=== PATIENT | female | born 1945 | race Caucasian/White ===

== ENCOUNTER 2019-02-28 23:13 | Inpatient (IN) | payer MEDICARE ==
[~2019-02-28] VITALS: Ht 162.6 cm; Wt 73.7 kg
[2019-02-28] MEDS ORDERED: VANCOMYCIN 1,300 MG in SODIUM CHLORIDE 0.9% 250 ML IV ONE (23:45)
[2019-03-01] VITALS (8 sets, daily range): BP systolic 93–137; BP diastolic 51–78
[2019-03-01] MEDS ORDERED: SODIUM CHLORIDE 0.9% 1,000ML IVBOLUS ONE
[2019-03-01] MEDS ORDERED: SUCCINYLCHOLINE 20 MG/ML, 10ML ONE
[2019-03-01] MEDS ORDERED: ETOMIDATE 40 MG/20 ML ONE
[2019-03-01] MEDS ORDERED: VANCOMYCIN PER PHARMACY MC ONE
[2019-03-01 00:49] LABS: MICROSCOPIC INDICATED
[2019-03-01 01:09] LABS: CULTURE INDICATED? YES
[2019-03-01] MEDS ORDERED: ZOLP-413 PO (01:10)
[2019-03-01] MEDS ORDERED: GABA300C10 PO (01:10)
[2019-03-01] MEDS ORDERED: ACETAMINOPHEN 325 MG TABLET PO PRN (04:30)
[2019-03-01] MEDS ORDERED: morphine SULFATE 10 MG/ML, 1ML IVPush PRN (04:30)
[2019-03-01] MEDS ORDERED: ONDANSETRON 2MG/ML, 2ML IVPush PRN (04:30)
[2019-03-01] MEDS ORDERED: LACTATED RINGERS 1,000 ML IV SCH (04:30)
[2019-03-01] MEDS ORDERED: HYDROcodone/APAP 5/325 TABLET PO PRN (04:30)
[2019-03-01] MEDS ORDERED: VANCOMYCIN PER PHARMACY MC PRN (04:30)
[2019-03-01] MEDS ORDERED: PHARMACY MAY ADJ FOR RENAL FX MC PRN (04:30)
[2019-03-01] MEDS ORDERED: HEPARIN 5,000 UNITS/ML, 1ML SQ SCH (04:30)
[2019-03-01] MEDS ORDERED: ALBUTEROL SULFATE 2.5 MG/3 ML NPPB PRN (05:00)
[2019-03-01] MEDS: PIPERACILLIN/TAZO/PMX 3.375GM 50 ML IV SCH ×3 (05:11→19:13)
[2019-03-01] MEDS ORDERED: PHARMACOKINETIC CONSULTATION MC ONE (06:00)
[2019-03-01] MEDS ORDERED: PHARMACOKINETIC MONITORING MC PRN (06:00)
[2019-03-01 07:31] LABS: ALANINE AMINOTRANSFERASE 11 U/L (12-78); ANION GAP 9 mmol/L (5-15); CALCIUM 8.2 mg/dL (8.5-10.1); CHLORIDE 105 mmol/L (98-107); CREATININE 0.91 mg/dL (0.55-1.02)
[2019-03-01 07:36] LABS: ALKALINE PHOSPHATASE 58 U/L (45-117); BILIRUBIN,TOTAL 0.8 mg/dL (0.2-1.0); TOTAL PROTEIN 6.3 g/dL (6.4-8.2); TROPONIN I 0.039 ng/mL (0.000-0.045)
[2019-03-01 07:49] LABS: MEAN CORPUSCULAR HEMOGLOBIN 29.6 pg (27.0-34.8); MEAN CORPUSCULAR HGB CONC 32.8 g/dL (32.4-35.8); MEAN CORPUSCULAR VOLUME 90.3 fL (80-100); MEAN PLATELET VOLUME 10.2 fL (7.4-10.4); RED BLOOD COUNT 2.67 x10^6/uL (3.82-5.3); RED CELL DISTRIBUTION WIDTH 19.3 % (9.6-15.2)
[2019-03-01 07:50] LABS: PLATELET COUNT 12 x10^3/uL (130-400)
[2019-03-01 07:51] LABS: MD YES
[2019-03-01 07:54] LABS: <PLATELET ESTIMATE> DECREASED; ANISOCYTOSIS 1+; BAND#(MANUAL) 0.11 x10^3/uL; BANDS%(MANUAL) 4 % (0-7); LARGE PLATELETS 1+; LYMPH#(MANUAL) 0.39 x10^3/uL (1-3.4); LYMPHS% (MANUAL) 14 % (22-44); METAMYELOCYTES# (MANUAL) 0.06 x10^3/uL (0-0); METAMYELOCYTES% (MANUAL) 2 % (0-1); MONOS#(MANUAL) 0.39 x10^3/uL (0.3-2.7); MONOS% (MANUAL) 14 % (2-9); MYELOCYTES# (MANUAL) 0.03 x10^3/uL (0-0); MYELOCYTES% (MANUAL) 1 % (0-0); NRBC % (MANUAL) 2 % (0-1); SEG#(MANUAL) 1.82 x10^3/uL (1.8-6.8); SEGS% (MANUAL) 65 % (42-75)
[2019-03-01 07:57] LABS: POLYCHROMASIA 1+
[2019-03-01] MEDS ORDERED: DAPTOMYCIN 425 MG in SODIUM CHLORIDE 0.9% 100 ML IVPB SCH (09:00)
[2019-03-01] MEDS ORDERED: POTASSIUM CHLORIDE 10% 40 MEQ/30 ML UDC PO ONE (10:00)
[2019-03-01] MEDS ORDERED: MAGNESIUM SULFATE/D5W 100 ML IV ONE (10:00)
[2019-03-01] MEDS ORDERED: IMMUNE GLOB (GAMUNEX) 10GM/100ML IVPB ONE (11:00)
[2019-03-01] MEDS ORDERED: IMMUNE GLOBULIN IV ONE (11:00)
[2019-03-01] MEDS ORDERED: IMMUNE GLOB (GAMUNEX) 10GM/100ML ONE (11:00)
[2019-03-01] MEDS ORDERED: GADOTERATE 7.5 MMOL/15 ML SYR ONE (11:28)
[2019-03-01 12:04] LABS: T4 (THYROXINE) 6.3 mcg/dL (4.8-13.9)
[2019-03-01 12:10] LABS: TROPONIN I 0.047 ng/mL (0.000-0.045)
[2019-03-01] MEDS: OXYcodone 5 MG/5 ML ORAL.SOL UDC PO PRN (13:13)
[2019-03-01] MEDS ORDERED: METHYLPREDNISOLONE SOD SUCC 500 MG ONE (14:05)
[2019-03-01] MEDS ORDERED: EPINEPHRINE 1 MG/ML, 30ML ONE (14:05)
[2019-03-01] MEDS ORDERED: FENTANYL PF 100 MCG/2ML ONE (14:16)
[2019-03-01] MEDS ORDERED: PROPOFOL 100 ML IV ONE (14:20)
[2019-03-01] MEDS ORDERED: NOREPINEPHRINE 8 MG in SODIUM CHLORIDE 0.9% 242 ML IV PRN (14:47)
[2019-03-01] MEDS ORDERED: SENNA 176 MG/5 ML ORAL SOL NG PRN (15:00)
[2019-03-01] MEDS ORDERED: DEXTROSE 50%, 50ML SYRINGE IVPush PRN (15:00)
[2019-03-01] MEDS: ALBUTEROL/IPRATROPIUM 2.5MG/0.5MG, 3 ML INLINE SCH ×3 (15:00→22:23)
[2019-03-01] MEDS ORDERED: LACTULOSE 20 GM/30 ML UDC NG PRN (15:00)
[2019-03-01] MEDS ORDERED: LIDOCAINE-MPF 1%, 2ML ENDO PRN (15:00)
[2019-03-01] MEDS ORDERED: PHARMACY MAY ADJ FOR RENAL FX MC SCH (15:00)
[2019-03-01] MEDS ORDERED: BISACODYL 10 MG SUPP PR PRN (15:00)
[2019-03-01] MEDS ORDERED: DEXTROSE 4 GM TAB.CHEW PO PRN (15:00)
[2019-03-01] MEDS: methylPREDNISolone SOD SUCC 40 MG/ML IV SCH ×2 (15:00→21:31)
[2019-03-01] MEDS ORDERED: GLUCAGON 1 MG IM PRN (15:00)
[2019-03-01 15:42] LABS: ANION GAP 12 mmol/L (5-15); CALCIUM 8.7 mg/dL (8.5-10.1); CHLORIDE 105 mmol/L (98-107); TRIGLYCERIDES 218 mg/dL (50-200)
[2019-03-01 15:45] LABS: TROPONIN I 0.152 ng/mL (0.000-0.045)
[2019-03-01] MEDS: INSULIN LISPRO 100 UNITS/ML, PEN SQ-INSULIN SCH ×2 (16:00→21:40)
[2019-03-01 16:01] LABS: INTERNATIONAL NORMALIZED RATIO 1.2 (0.93-1.1); PROTHROMBIN TIME 12.7 Seconds (9.6-11.5)
[2019-03-01] MEDS: LACTATED RINGERS 1,000 ML IV SCH ×2 (16:03→22:47)
[2019-03-01 16:06] LABS: D-DIMER (DIC) 16.49 ug/mlFEU (0.00-0.52); PROTIME 12.7 Seconds (9.6-11.5)
[2019-03-01] MEDS: PROPOFOL 100 ML IV PRN ×3 (16:06→23:38)
[2019-03-01 16:07] LABS: MICROSCOPIC INDICATED
[2019-03-01] MEDS: CIPROFLOXACIN/PMX 400MG/200ML 200 ML IV SCH (16:11)
[2019-03-01 16:22] LABS: CULTURE INDICATED? NO
[2019-03-01] MEDS ORDERED: MAGNESIUM SULFATE PMX 2GM/50ML 50 ML IV ONE (16:30)
[2019-03-01] MEDS: FAMOTIDINE 20 MG/2 ML IV SCH (17:25)
[2019-03-01] MEDS: FENTANYL PF 100 MCG/2ML IVPush PRN (18:26)
[2019-03-01] MEDS ORDERED: SODIUM CHLORIDE 0.9%, 500ML IVBOLUS ONE (18:30)
[2019-03-01] MEDS ORDERED: DIPHENHYDRAMINE 50 MG/ML, 1ML IVPush ONE (20:30)
[2019-03-01] MEDS: HYDROCORTISONE 100 MG INJ. IVPush PRN (21:31)
[2019-03-01] MEDS: SODIUM CHLORIDE FLUSH 10ML SYR IVF SCH (21:40)
[2019-03-01 22:23] LABS: TROPONIN I 0.194 ng/mL (0.000-0.045)
[2019-03-01 23:47] LABS: RAPID INFLUENZA A Negative (Negative)
[2019-03-01 23:48] LABS: RAPID INFLUENZA B POSITIVE (Negative)
[2019-03-02] VITALS (7 sets, daily range): BP systolic 92–127; BP diastolic 57–82
[2019-03-02] MEDS: FENTANYL PF 100 MCG/2ML IVPush PRN ×5 (01:18→19:39)
[2019-03-02] MEDS: PIPERACILLIN/TAZO/PMX 3.375GM 50 ML IV SCH ×4 (01:18→19:39)
[2019-03-02] MEDS: ALBUTEROL/IPRATROPIUM 2.5MG/0.5MG, 3 ML INLINE SCH ×6 (02:23→23:00)
[2019-03-02] MEDS: FAMOTIDINE 20 MG/2 ML IV SCH ×2 (03:30→15:19)
[2019-03-02] MEDS: methylPREDNISolone SOD SUCC 40 MG/ML IV SCH ×5 (03:30→23:40)
[2019-03-02] MEDS: CIPROFLOXACIN/PMX 400MG/200ML 200 ML IV SCH ×3 (03:30→23:40)
[2019-03-02 04:04] LABS: ALANINE AMINOTRANSFERASE 16 U/L (12-78); ALBUMIN 1.9 g/dL (3.4-5.0); ANION GAP 9 mmol/L (5-15); CALCIUM 8.9 mg/dL (8.5-10.1); CHLORIDE 108 mmol/L (98-107); CREATININE 0.95 mg/dL (0.55-1.02)
[2019-03-02 04:06] LABS: MEAN CORPUSCULAR HEMOGLOBIN 29.7 pg (27.0-34.8); MEAN CORPUSCULAR HGB CONC 33.1 g/dL (32.4-35.8); MEAN CORPUSCULAR VOLUME 89.9 fL (80-100); RED BLOOD COUNT 2.62 x10^6/uL (3.82-5.3); RED CELL DISTRIBUTION WIDTH 19.1 % (9.6-15.2)
[2019-03-02 04:07] LABS: ALKALINE PHOSPHATASE 53 U/L (45-117); BILIRUBIN,TOTAL 1.3 mg/dL (0.2-1.0); TOTAL PROTEIN 5.7 g/dL (6.4-8.2)
[2019-03-02 04:19] LABS: MEAN PLATELET VOLUME 9.5 fL (7.4-10.4)
[2019-03-02 04:21] LABS: PLATELET COUNT 13 x10^3/uL (130-400)
[2019-03-02 04:23] LABS: MD YES
[2019-03-02 04:27] LABS: BAND#(MANUAL) 0.27 x10^3/uL; BANDS%(MANUAL) 7 % (0-7); LYMPH#(MANUAL) 0.66 x10^3/uL (1-3.4); LYMPHS% (MANUAL) 17 % (22-44); METAMYELOCYTES# (MANUAL) 0.08 x10^3/uL (0-0); METAMYELOCYTES% (MANUAL) 2 % (0-1); MONOS#(MANUAL) 0.55 x10^3/uL (0.3-2.7); MONOS% (MANUAL) 14 % (2-9); SEG#(MANUAL) 2.34 x10^3/uL (1.8-6.8); SEGS% (MANUAL) 60 % (42-75)
[2019-03-02 04:28] LABS: <PLATELET ESTIMATE> DECREASED; <PLT MORPHOLOGY> NORMAL PLT MORPH; ANISOCYTOSIS 1+; POLYCHROMASIA 1+
[2019-03-02] MEDS ORDERED: HYDROCORTISONE 100 MG INJ. IVPush PRN (04:30)
[2019-03-02] MEDS ORDERED: DIPHENHYDRAMINE 50 MG/ML, 1ML IVPush PRN (04:30)
[2019-03-02] MEDS: PROPOFOL 100 ML IV PRN ×5 (06:40→23:40)
[2019-03-02] MEDS ORDERED: IMMUNE GLOB (GAMUNEX) 10GM/100ML IVPB ONE (07:30)
[2019-03-02 08:44] LABS: ABSOLUTE RETICS # 0.065 x10^6/uL (0.5-2.5); RED BLOOD COUNT 2.56 x10^6/uL (3.82-5.3); RETICULOCYTE COUNT % 2.53 % (0.5-1.5)
[2019-03-02] MEDS: SODIUM CHLORIDE FLUSH 10ML SYR IVF SCH ×2 (09:48→22:36)
[2019-03-02] MEDS: OSELTAMIVIR 75 MG CAPSULE PO SCH ×2 (09:48→22:36)
[2019-03-02] MEDS ORDERED: IMMUNE GLOBULIN IV ONE (10:00)
[2019-03-02] MEDS: DIPHENHYDRAMINE 50 MG/ML, 1ML IVPush PRN (10:41)
[2019-03-02] MEDS: ACETAMINOPHEN 325 MG TABLET PO PRN (10:41)
[2019-03-02] MEDS: HYDROCORTISONE 100 MG INJ. IVPush PRN (10:41)
[2019-03-02] MEDS ORDERED: DEXMEDETOMIDINE 400 MCG in SODIUM CHLORIDE 0.9% 96 ML IV PRN (11:30)
--- NOTE | 2019-03-02 11:58 | NUR ---
TF Goal: w/ propofol: PROMOTE @ 55ml/hr; without propofol: 60ml/hr
[2019-03-02] MEDS: INSULIN LISPRO 100 UNITS/ML, PEN SQ-INSULIN SCH ×3 (12:10→22:46)
[2019-03-02] MEDS: BUDESONIDE 0.5 MG/2 ML INHA INH SCH (21:00)
[2019-03-03] MEDS: PIPERACILLIN/TAZO/PMX 3.375GM 50 ML IV SCH ×4 (01:33→19:14)
[2019-03-03] MEDS: ALBUTEROL/IPRATROPIUM 2.5MG/0.5MG, 3 ML INLINE SCH ×6 (03:00→22:56)
[2019-03-03] MEDS: INSULIN LISPRO 100 UNITS/ML, PEN SQ-INSULIN SCH ×4 (04:14→22:52)
[2019-03-03] MEDS: PROPOFOL 100 ML IV PRN ×2 (04:15→10:55)
[2019-03-03] MEDS: FENTANYL PF 100 MCG/2ML IVPush PRN ×5 (04:15→20:53)
[2019-03-03 04:44] LABS: ANION GAP 8 mmol/L (5-15); CALCIUM 9.1 mg/dL (8.5-10.1); CHLORIDE 106 mmol/L (98-107)
[2019-03-03 04:46] LABS: CREATININE 0.81 mg/dL (0.55-1.02)
[2019-03-03 05:32] VITALS: BP 97/57
[2019-03-03 05:41] LABS: MEAN CORPUSCULAR HEMOGLOBIN 30.1 pg (27.0-34.8); MEAN CORPUSCULAR HGB CONC 33.6 g/dL (32.4-35.8); MEAN CORPUSCULAR VOLUME 89.7 fL (80-100); MEAN PLATELET VOLUME 10.3 fL (7.4-10.4); RED BLOOD COUNT 2.45 x10^6/uL (3.82-5.3); RED CELL DISTRIBUTION WIDTH 18.7 % (9.6-15.2)
[2019-03-03 05:42] LABS: MD YES
[2019-03-03 05:43] LABS: PLATELET COUNT 17 x10^3/uL (130-400)
[2019-03-03 05:45] LABS: LYMPH#(MANUAL) 0.29 x10^3/uL (1-3.4); LYMPHS% (MANUAL) 14 % (22-44)
[2019-03-03 05:46] LABS: BAND#(MANUAL) 0.23 x10^3/uL; BANDS%(MANUAL) 11 % (0-7); MONOS#(MANUAL) 0.11 x10^3/uL (0.3-2.7); MONOS% (MANUAL) 5 % (2-9); SEG#(MANUAL) 1.47 x10^3/uL (1.8-6.8); SEGS% (MANUAL) 70 % (42-75)
[2019-03-03 05:47] LABS: <PLATELET ESTIMATE> DECREASED; ANISOCYTOSIS 1+; LARGE PLATELETS 1+; POLYCHROMASIA 1+
[2019-03-03] MEDS: CIPROFLOXACIN/PMX 400MG/200ML 200 ML IV SCH ×3 (05:55→22:24)
[2019-03-03] MEDS: BUDESONIDE 0.5 MG/2 ML INHA INH SCH ×2 (07:50→21:00)
[2019-03-03] MEDS: OSELTAMIVIR 75 MG CAPSULE PO SCH ×2 (09:18→20:52)
[2019-03-03] MEDS: methylPREDNISolone SOD SUCC 40 MG/ML IV SCH (09:19)
[2019-03-03] MEDS: SODIUM CHLORIDE FLUSH 10ML SYR IVF SCH ×2 (09:19→20:52)
[2019-03-03] MEDS: FAMOTIDINE 20 MG/2 ML IV SCH (09:19)
[2019-03-03] MEDS: HYDROCORTISONE 100 MG INJ. IVPush PRN (12:48)
[2019-03-03] MEDS: ACETAMINOPHEN 325 MG TABLET PO PRN (12:48)
[2019-03-03] MEDS: DIPHENHYDRAMINE 50 MG/ML, 1ML IVPush PRN (12:48)
[2019-03-03 12:57] VITALS: BP 129/58
[2019-03-03 13:15] VITALS: BP 109/58
[2019-03-03 13:30] VITALS: BP 116/57
[2019-03-03] MEDS ORDERED: methylPREDNISolone SOD SUCC 40 MG/ML IV SCH (14:00)
[2019-03-03 16:05] VITALS: BP 113/66
[2019-03-03] MEDS ORDERED: DEXAMETHASONE 4 MG/ML, 5ML IVPush ONE (16:30)
[2019-03-03] MEDS ORDERED: DEXAMETHASONE 4 MG/ML, 1ML ONE (16:32)
[2019-03-03 17:00] VITALS: BP 110/62
[2019-03-03] MEDS: DEXMEDETOMIDINE 400 MCG in SODIUM CHLORIDE 0.9% 96 ML IV PRN ×2 (17:24→22:24)
[2019-03-03] MEDS: DEXAMETHASONE 4 MG/ML, 1ML IVPush SCH (20:53)
[2019-03-04] MEDS: PIPERACILLIN/TAZO/PMX 3.375GM 50 ML IV SCH ×4 (00:58→19:29)
[2019-03-04] MEDS: DEXMEDETOMIDINE 400 MCG in SODIUM CHLORIDE 0.9% 96 ML IV PRN ×3 (01:22→09:27)
[2019-03-04] MEDS: FENTANYL PF 100 MCG/2ML IVPush PRN ×2 (02:05→07:32)
[2019-03-04] MEDS: ALBUTEROL/IPRATROPIUM 2.5MG/0.5MG, 3 ML INLINE SCH ×2 (03:00→07:16)
[2019-03-04 03:27] LABS: MEAN CORPUSCULAR HEMOGLOBIN 29.6 pg (27.0-34.8); MEAN CORPUSCULAR HGB CONC 33.2 g/dL (32.4-35.8); MEAN PLATELET VOLUME 8.8 fL (7.4-10.4); RED BLOOD COUNT 2.57 x10^6/uL (3.82-5.3); RED CELL DISTRIBUTION WIDTH 18.8 % (9.6-15.2)
[2019-03-04 03:28] LABS: PLATELET COUNT 30 x10^3/uL (130-400)
[2019-03-04 03:38] LABS: ANION GAP 6 mmol/L (5-15); CALCIUM 8.7 mg/dL (8.5-10.1); CHLORIDE 106 mmol/L (98-107); CREATININE 0.67 mg/dL (0.55-1.02); TRIGLYCERIDES 282 mg/dL (50-200)
[2019-03-04 03:41] LABS: MD YES
[2019-03-04 03:45] LABS: BAND#(MANUAL) 0.11 x10^3/uL; BANDS%(MANUAL) 5 % (0-7); LYMPH#(MANUAL) 0.27 x10^3/uL (1-3.4); LYMPHS% (MANUAL) 13 % (22-44); METAMYELOCYTES# (MANUAL) 0.02 x10^3/uL (0-0); METAMYELOCYTES% (MANUAL) 1 % (0-1); MONOS#(MANUAL) 0.06 x10^3/uL (0.3-2.7); MONOS% (MANUAL) 3 % (2-9); NRBC % (MANUAL) 2 % (0-1); SEG#(MANUAL) 1.64 x10^3/uL (1.8-6.8); SEGS% (MANUAL) 78 % (42-75)
[2019-03-04 03:46] LABS: <PLATELET ESTIMATE> DECREASED; ANISOCYTOSIS 1+; PMNS WITH VACUOLES 1+; POLYCHROMASIA 1+
[2019-03-04 03:47] LABS: LARGE PLATELETS 1+
[2019-03-04 03:56] VITALS: BP 144/87
[2019-03-04] MEDS: DEXAMETHASONE 4 MG/ML, 1ML IVPush SCH ×2 (04:52→11:08)
[2019-03-04] MEDS: INSULIN LISPRO 100 UNITS/ML, PEN SQ-INSULIN SCH ×4 (04:53→22:58)
[2019-03-04] MEDS: CIPROFLOXACIN/PMX 400MG/200ML 200 ML IV SCH ×3 (06:10→22:57)
[2019-03-04] MEDS: BUDESONIDE 0.5 MG/2 ML INHA INH SCH (07:16)
[2019-03-04] MEDS: FAMOTIDINE 20 MG/2 ML IV SCH (08:45)
[2019-03-04] MEDS: OSELTAMIVIR 75 MG CAPSULE PO SCH ×2 (08:45→20:45)
[2019-03-04] MEDS: SODIUM CHLORIDE FLUSH 10ML SYR IVF SCH ×2 (08:46→20:47)
[2019-03-04] MEDS ORDERED: HYDROmorphone 1 MG/ML, 1ML INJ IM PRN (12:00)
[2019-03-04] MEDS: OXYcodone 5 MG/5 ML ORAL.SOL UDC PO PRN (14:55)
[2019-03-04] MEDS: ACETAMINOPHEN 325 MG TABLET PO PRN (19:35)
[2019-03-04] MEDS: HYDROmorphone 2 MG/ML, 1ML IVPush PRN (20:46)
[2019-03-05] MEDS: PIPERACILLIN/TAZO/PMX 3.375GM 50 ML IV SCH ×4 (02:27→18:09)
[2019-03-05 04:06] LABS: ANION GAP 5 mmol/L (5-15); CALCIUM 8.9 mg/dL (8.5-10.1); CHLORIDE 106 mmol/L (98-107); CREATININE 0.83 mg/dL (0.55-1.02)
[2019-03-05 04:38] LABS: INTERNATIONAL NORMALIZED RATIO 1.07 (0.93-1.1); PROTHROMBIN TIME 11.4 Seconds (9.6-11.5)
[2019-03-05 04:38] LABS: MEAN CORPUSCULAR HEMOGLOBIN 29.5 pg (27.0-34.8); MEAN CORPUSCULAR HGB CONC 32.9 g/dL (32.4-35.8); MEAN CORPUSCULAR VOLUME 89.6 fL (80-100); RED BLOOD COUNT 2.63 x10^6/uL (3.82-5.3); RED CELL DISTRIBUTION WIDTH 18.7 % (9.6-15.2)
[2019-03-05 04:52] LABS: MEAN PLATELET VOLUME 9.9 fL (7.4-10.4)
[2019-03-05 04:54] LABS: MD YES; PLATELET COUNT 25 x10^3/uL (130-400)
[2019-03-05 05:00] LABS: BAND#(MANUAL) 0.21 x10^3/uL; BANDS%(MANUAL) 4 % (0-7); LYMPH#(MANUAL) 0.31 x10^3/uL (1-3.4); LYMPHS% (MANUAL) 6 % (22-44); METAMYELOCYTES# (MANUAL) 0.05 x10^3/uL (0-0); METAMYELOCYTES% (MANUAL) 1 % (0-1); MONOS#(MANUAL) 0.42 x10^3/uL (0.3-2.7); MONOS% (MANUAL) 8 % (2-9); REACTIVE LYMPHS # (MANUAL) 0.05 x10^3/uL (0-0); REACTIVE LYMPHS % (MANUAL) 1 % (0-0); SEG#(MANUAL) 4.16 x10^3/uL (1.8-6.8); SEGS% (MANUAL) 80 % (42-75)
[2019-03-05] MEDS: INSULIN LISPRO 100 UNITS/ML, PEN SQ-INSULIN SCH (05:00)
[2019-03-05 05:01] LABS: <PLATELET ESTIMATE> DECREASED; ANISOCYTOSIS 1+; LARGE PLATELETS 1+; POLYCHROMASIA 1+
[2019-03-05 05:22] VITALS: BP 122/67
[2019-03-05] MEDS ORDERED: FUROSEMIDE 20 MG/2 ML IV ONE (09:00)
[2019-03-05] MEDS: CIPROFLOXACIN/PMX 400MG/200ML 200 ML IV SCH (10:05)
[2019-03-05] MEDS: FAMOTIDINE 20 MG/2 ML IV SCH (11:07)
[2019-03-05] MEDS: OSELTAMIVIR 75 MG CAPSULE PO SCH ×2 (11:08→21:39)
[2019-03-05] MEDS: SODIUM CHLORIDE FLUSH 10ML SYR IVF SCH ×2 (11:09→21:40)
[2019-03-05] MEDS: ACETAMINOPHEN 325 MG TABLET PO PRN (16:26)
[2019-03-05] MEDS: OXYcodone 5 MG/5 ML ORAL.SOL UDC PO PRN (18:09)
[2019-03-05] MEDS: HYDROmorphone 2 MG/ML, 1ML IVPush PRN (21:40)
[2019-03-06] VITALS (7 sets, daily range): BP systolic 106–150; BP diastolic 64–89
[2019-03-06] MEDS: PIPERACILLIN/TAZO/PMX 3.375GM 50 ML IV SCH ×4 (01:11→21:41)
[2019-03-06 04:09] LABS: MEAN CORPUSCULAR HEMOGLOBIN 29.9 pg (27.0-34.8); MEAN CORPUSCULAR HGB CONC 33.4 g/dL (32.4-35.8); MEAN CORPUSCULAR VOLUME 89.6 fL (80-100); MEAN PLATELET VOLUME 9.3 fL (7.4-10.4); RED BLOOD COUNT 2.42 x10^6/uL (3.82-5.3); RED CELL DISTRIBUTION WIDTH 18.5 % (9.6-15.2)
[2019-03-06 04:11] LABS: PLATELET COUNT 16 x10^3/uL (130-400)
[2019-03-06 04:14] LABS: MD YES
[2019-03-06 04:19] LABS: ANION GAP 6 mmol/L (5-15); CALCIUM 8.5 mg/dL (8.5-10.1); CHLORIDE 105 mmol/L (98-107)
[2019-03-06 04:25] LABS: ANISOCYTOSIS 1+; BAND#(MANUAL) 0.06 x10^3/uL; BANDS%(MANUAL) 2 % (0-7); EOS#(MANUAL) 0.06 x10^3/uL (0.0-0.4); EOS% (MANUAL) 2 % (1-7); LYMPH#(MANUAL) 0.39 x10^3/uL (1-3.4); LYMPHS% (MANUAL) 14 % (22-44); METAMYELOCYTES# (MANUAL) 0.03 x10^3/uL (0-0); METAMYELOCYTES% (MANUAL) 1 % (0-1); MONOS#(MANUAL) 0.39 x10^3/uL (0.3-2.7); MONOS% (MANUAL) 14 % (2-9); MYELOCYTES# (MANUAL) 0.03 x10^3/uL (0-0); MYELOCYTES% (MANUAL) 1 % (0-0); NRBC % (MANUAL) 2 % (0-1); POLYCHROMASIA 1+; SEG#(MANUAL) 1.85 x10^3/uL (1.8-6.8); SEGS% (MANUAL) 66 % (42-75)
[2019-03-06 04:26] LABS: <PLATELET ESTIMATE> DECREASED; <PLT MORPHOLOGY> QNS FOR PLT MORPH
[2019-03-06] MEDS: OXYcodone 5 MG/5 ML ORAL.SOL UDC PO PRN ×4 (04:46→19:25)
[2019-03-06] MEDS: ACETAMINOPHEN 325 MG TABLET PO PRN (07:02)
[2019-03-06] MEDS: HYDROCORTISONE 100 MG INJ. IVPush PRN (07:03)
[2019-03-06] MEDS: DIPHENHYDRAMINE 50 MG/ML, 1ML IVPush PRN (07:03)
[2019-03-06] MEDS ORDERED: ALBUTEROL SULFATE 2.5 MG/3 ML ONE (07:20)
[2019-03-06] MEDS ORDERED: ALBUTEROL SULFATE 2.5 MG/3 ML NPPB PRN (10:00)
[2019-03-06] MEDS: FAMOTIDINE 20 MG/2 ML IV SCH (10:21)
[2019-03-06] MEDS: SODIUM CHLORIDE FLUSH 10ML SYR IVF SCH ×2 (10:22→21:41)
[2019-03-06] MEDS: OSELTAMIVIR 75 MG CAPSULE PO SCH ×2 (10:22→21:38)
[2019-03-06] MEDS ORDERED: SIMETHICONE 80 MG CHEW TAB PO PRN (22:00)
[2019-03-07] VITALS (7 sets, daily range): BP systolic 107–145; BP diastolic 59–87
[2019-03-07] MEDS: OXYcodone 5 MG/5 ML ORAL.SOL UDC PO PRN ×4 (01:13→20:53)
[2019-03-07] MEDS: PIPERACILLIN/TAZO/PMX 3.375GM 50 ML IV SCH ×4 (02:25→20:54)
[2019-03-07 04:20] LABS: MEAN CORPUSCULAR HEMOGLOBIN 30.5 pg (27.0-34.8); MEAN CORPUSCULAR HGB CONC 33.8 g/dL (32.4-35.8); MEAN CORPUSCULAR VOLUME 90.3 fL (80-100); MEAN PLATELET VOLUME 8.3 fL (7.4-10.4); RED BLOOD COUNT 2.28 x10^6/uL (3.82-5.3); RED CELL DISTRIBUTION WIDTH 18.6 % (9.6-15.2)
[2019-03-07 04:22] LABS: ANION GAP 6 mmol/L (5-15); CALCIUM 7.8 mg/dL (8.5-10.1); CHLORIDE 105 mmol/L (98-107); CREATININE 0.67 mg/dL (0.55-1.02)
[2019-03-07 04:23] LABS: PLATELET COUNT 37 x10^3/uL (130-400)
[2019-03-07 04:46] LABS: MD YES
[2019-03-07 04:50] LABS: <PLATELET ESTIMATE> DECREASED; ANISOCYTOSIS 1+; BANDS%(MANUAL) 4 % (0-7); EOS#(MANUAL) 0.05 x10^3/uL (0.0-0.4); EOS% (MANUAL) 2 % (1-7); LYMPH#(MANUAL) 0.36 x10^3/uL (1-3.4); LYMPHS% (MANUAL) 14 % (22-44); METAMYELOCYTES# (MANUAL) 0.21 x10^3/uL (0-0); METAMYELOCYTES% (MANUAL) 8 % (0-1); MONOS% (MANUAL) 4 % (2-9); MYELOCYTES# (MANUAL) 0.03 x10^3/uL (0-0); MYELOCYTES% (MANUAL) 1 % (0-0); NRBC % (MANUAL) 4 % (0-1); POLYCHROMASIA 1+; SEG#(MANUAL) 1.74 x10^3/uL (1.8-6.8); SEGS% (MANUAL) 67 % (42-75)
[2019-03-07 04:51] LABS: <PLT MORPHOLOGY> NORMAL PLT MORPH
[2019-03-07] MEDS ORDERED: POTASSIUM CHLORIDE 20 MEQ TAB.ER.PRT PO ONE (07:00)
[2019-03-07] MEDS: SODIUM CHLORIDE FLUSH 10ML SYR IVF SCH ×2 (08:24→22:50)
[2019-03-07] MEDS: ACETAMINOPHEN 325 MG TABLET PO PRN ×2 (10:46→22:49)
[2019-03-07] MEDS: HYDROCORTISONE 100 MG INJ. IVPush PRN (10:46)
[2019-03-07] MEDS: DIPHENHYDRAMINE 50 MG/ML, 1ML IVPush PRN (10:46)
[2019-03-07] MEDS ORDERED: BUPIVACAINE/PF 0.5% ONE (15:44)
[2019-03-07] MEDS ORDERED: ROPivacaine/PF 0.2%, 10 ML ONE (15:44)
[2019-03-07] MEDS ORDERED: SODIUM BICARBONATE 4.2%, 5ML ONE (15:44)
[2019-03-07] MEDS ORDERED: LIDOCAINE 1%, 10ML ONE (15:44)
[2019-03-08 02:02] VITALS: BP 140/86
[2019-03-08] MEDS: OXYcodone 5 MG/5 ML ORAL.SOL UDC PO PRN ×5 (02:06→22:37)
[2019-03-08] MEDS: PIPERACILLIN/TAZO/PMX 3.375GM 50 ML IV SCH ×4 (03:10→21:41)
[2019-03-08 04:19] LABS: MEAN CORPUSCULAR HEMOGLOBIN 29.5 pg (27.0-34.8); MEAN CORPUSCULAR HGB CONC 32.9 g/dL (32.4-35.8); MEAN CORPUSCULAR VOLUME 89.8 fL (80-100); MEAN PLATELET VOLUME 8.9 fL (7.4-10.4); RED CELL DISTRIBUTION WIDTH 18.3 % (9.6-15.2)
[2019-03-08 04:21] LABS: CREATININE 0.63 mg/dL (0.55-1.02)
[2019-03-08 04:23] LABS: PLATELET COUNT 32 x10^3/uL (130-400)
[2019-03-08 04:26] LABS: ANION GAP 5 mmol/L (5-15); CHLORIDE 106 mmol/L (98-107)
[2019-03-08 04:42] LABS: MD YES
[2019-03-08 04:52] LABS: EOS#(MANUAL) 0.03 x10^3/uL (0.0-0.4); EOS% (MANUAL) 1 % (1-7); LYMPH#(MANUAL) 0.48 x10^3/uL (1-3.4); LYMPHS% (MANUAL) 19 % (22-44); METAMYELOCYTES# (MANUAL) 0.03 x10^3/uL (0-0); METAMYELOCYTES% (MANUAL) 1 % (0-1); MONOS#(MANUAL) 0.08 x10^3/uL (0.3-2.7); MONOS% (MANUAL) 3 % (2-9); MYELOCYTES# (MANUAL) 0.05 x10^3/uL (0-0); MYELOCYTES% (MANUAL) 2 % (0-0); SEG#(MANUAL) 1.85 x10^3/uL (1.8-6.8); SEGS% (MANUAL) 74 % (42-75)
[2019-03-08 04:53] LABS: ANISOCYTOSIS 1+; POLYCHROMASIA 1+
[2019-03-08 04:54] LABS: <PLATELET ESTIMATE> DECREASED
[2019-03-08 04:56] LABS: <PLT MORPHOLOGY> NORMAL PLT MORPH
[2019-03-08 06:53] VITALS: BP 145/84
[2019-03-08] MEDS: SODIUM CHLORIDE FLUSH 10ML SYR IVF SCH ×2 (08:35→19:44)
[2019-03-08 12:27] VITALS: BP 137/81
[2019-03-08 19:50] VITALS: BP 146/99
[2019-03-09] VITALS (8 sets, daily range): BP systolic 113–151; BP diastolic 63–88
[2019-03-09] MEDS: OXYcodone 5 MG/5 ML ORAL.SOL UDC PO PRN ×5 (03:09→21:27)
[2019-03-09] MEDS: PIPERACILLIN/TAZO/PMX 3.375GM 50 ML IV SCH ×4 (03:09→21:27)
[2019-03-09 05:06] LABS: ANION GAP 6 mmol/L (5-15); CALCIUM 8.1 mg/dL (8.5-10.1); CHLORIDE 102 mmol/L (98-107); CREATININE 0.64 mg/dL (0.55-1.02)
[2019-03-09 05:07] LABS: MEAN CORPUSCULAR HEMOGLOBIN 29.8 pg (27.0-34.8); MEAN CORPUSCULAR HGB CONC 33.7 g/dL (32.4-35.8); MEAN CORPUSCULAR VOLUME 88.5 fL (80-100); RED BLOOD COUNT 2.98 x10^6/uL (3.82-5.3); RED CELL DISTRIBUTION WIDTH 19.1 % (9.6-15.2)
[2019-03-09 05:50] LABS: MD YES
[2019-03-09 05:51] LABS: MEAN PLATELET VOLUME 8.6 fL (7.4-10.4)
[2019-03-09 05:52] LABS: PLATELET COUNT 29 x10^3/uL (130-400)
[2019-03-09 05:54] LABS: EOS#(MANUAL) 0.03 x10^3/uL (0.0-0.4); EOS% (MANUAL) 1 % (1-7); LYMPH#(MANUAL) 0.23 x10^3/uL (1-3.4); LYMPHS% (MANUAL) 9 % (22-44); MONOS#(MANUAL) 0.25 x10^3/uL (0.3-2.7); MONOS% (MANUAL) 10 % (2-9); MYELOCYTES% (MANUAL) 4 % (0-0); SEGS% (MANUAL) 76 % (42-75)
[2019-03-09 05:55] LABS: <PLATELET ESTIMATE> DECREASED; <PLT MORPHOLOGY> NORMAL PLT MORPH; ANISOCYTOSIS 1+; POLYCHROMASIA 1+; TOXIC GRAN 1+
[2019-03-09] MEDS ORDERED: POTASSIUM CHLORIDE 20 MEQ TAB.ER.PRT PO ONE (07:00)
[2019-03-09] MEDS: SODIUM CHLORIDE FLUSH 10ML SYR IVF SCH ×2 (07:42→19:35)
[2019-03-09] MEDS: DIPHENHYDRAMINE 50 MG/ML, 1ML IVPush PRN ×2 (10:44→16:30)
[2019-03-09] MEDS: HYDROCORTISONE 100 MG INJ. IVPush PRN ×2 (10:44→16:30)
[2019-03-09] MEDS: ACETAMINOPHEN 325 MG TABLET PO PRN ×2 (10:45→16:29)
[2019-03-09] MEDS: LIDODERM 5% PATCH TD SCH (19:35)
[2019-03-10 01:42] VITALS: BP 127/71
[2019-03-10] MEDS: PIPERACILLIN/TAZO/PMX 3.375GM 50 ML IV SCH ×2 (03:16→10:16)
[2019-03-10 04:56] LABS: ANION GAP 6 mmol/L (5-15); CALCIUM 8.3 mg/dL (8.5-10.1); CHLORIDE 102 mmol/L (98-107); CREATININE 0.61 mg/dL (0.55-1.02)
[2019-03-10 04:58] LABS: MEAN CORPUSCULAR HEMOGLOBIN 29.8 pg (27.0-34.8); MEAN CORPUSCULAR HGB CONC 33.4 g/dL (32.4-35.8); MEAN CORPUSCULAR VOLUME 89.4 fL (80-100); RED CELL DISTRIBUTION WIDTH 18.7 % (9.6-15.2)
[2019-03-10] MEDS: OXYcodone 5 MG/5 ML ORAL.SOL UDC PO PRN ×3 (05:39→14:51)
[2019-03-10 05:57] LABS: BASOPHILS # (AUTO) 0.03 x10^3/uL (0-0.1); BASOPHILS % (AUTO) 1 % (0-1); EOSINOPHILS # (AUTO) 0.01 x10^3/uL (0-0.4); EOSINOPHILS % (AUTO) 1 % (1-7); LYMPHOCYTES # (AUTO) 0.49 x10^3/uL (1-3.4); LYMPHOCYTES % (AUTO) 20 % (22-44); MD SCAN; MONOCYTES # (AUTO) 0.32 x10^3/uL (0.2-0.8); MONOCYTES % (AUTO) 13 % (2-9); NEUTROPHILS # (AUTO) 1.63 x10^3/uL (1.8-6.8); NEUTROPHILS % (AUTO) 66 % (42-75); PLATELET COUNT 69 x10^3/uL (130-400)
[2019-03-10 07:15] VITALS: BP 121/66
[2019-03-10] MEDS: SODIUM CHLORIDE FLUSH 10ML SYR IVF SCH (10:18)
[2019-03-10 12:35] VITALS: BP 117/77
[2019-03-10] MEDS ORDERED: LIDO700A20 TD (13:22)
[2019-03-10] MEDS ORDERED: OXYC5SOL8 PO (13:22)
[2019-03-10] MEDS: LIDODERM 5% PATCH TD SCH (14:51)
[2019-03-10] MEDS ORDERED: PIPE3.375 IV (14:55)
== END 2019-03-10 15:15 | DRG 871 ==
LOC: ED 03-01 01:26 → EDIP 03-01 01:53 → 4WST 03-01 02:22 → ICU 03-01 14:10 → 4NW 03-06 12:00
PROVIDERS: ADMIT Family Medicine; ATTEND Internal Medicine
PROC: 30233R1 Transfusion of Nonautologous Platelets into Peripheral Vein, Percutaneous Approach (ICD-10-PCS; principal; 2019-03-01)
PROC: 0BH17EZ Insertion of Endotracheal Airway into Trachea, Via Natural or Artificial Opening (ICD-10-PCS; 2019-03-01)
PROC: 5A1945Z Respiratory Ventilation, 24-96 Consecutive Hours (ICD-10-PCS; 2019-03-01)
PROC: 0T9B70Z Drainage of Bladder with Drainage Device, Via Natural or Artificial Opening (ICD-10-PCS; 2019-03-01)
PROC: 02HV33Z Insertion of Infusion Device into Superior Vena Cava, Percutaneous Approach (ICD-10-PCS; 2019-03-01)
PROC: B548ZZA Ultrasonography of Superior Vena Cava, Guidance (ICD-10-PCS; 2019-03-01)
PROC: 30233N1 Transfusion of Nonautologous Red Blood Cells into Peripheral Vein, Percutaneous Approach (ICD-10-PCS; 2019-03-07)
DX: A41.52 Sepsis due to Pseudomonas (principal); N17.0 Acute kidney failure with tubular necrosis; J96.01 Acute respiratory failure with hypoxia; R65.21 Severe sepsis with septic shock; I21.A1 Myocardial infarction type 2; J10.00 Influenza due to other identified influenza virus with unspecified type of pneumonia; J96.02 Acute respiratory failure with hypercapnia; D61.818 Other pancytopenia; G93.40 Encephalopathy, unspecified; E87.6 Hypokalemia; I89.0 Lymphedema, not elsewhere classified; G89.29 Other chronic pain; M54.5 Low back pain; R16.2 Hepatomegaly with splenomegaly, not elsewhere classified; Z53.29 Procedure and treatment not carried out because of patient's decision for other reasons; M65.162 Other infective (teno)synovitis, left knee; E83.42 Hypomagnesemia; E66.01 Morbid (severe) obesity due to excess calories; I08.1 Rheumatic disorders of both mitral and tricuspid valves; M17.12 Unilateral primary osteoarthritis, left knee; Z95.2 Presence of prosthetic heart valve; Z87.01 Personal history of pneumonia (recurrent); Z90.710 Acquired absence of both cervix and uterus; Z90.89 Acquired absence of other organs; Z85.72 Personal history of non-Hodgkin lymphomas; Z79.899 Other long term (current) drug therapy
CPT/HCPCS: 20610; 36415; 36573; 36600; 70450; 70551; 71045; 74176; 80048; 80053; 81001; 82784; 82787; 82803; 82962; 83010; 83605; 83615; 83735; 83883; 84100; 84145; 84155; 84165; 84436; 84443; 84478; 84481; 84484; 85014; 85018; 85025; 85045; 85049; 85379; 85384; 85610; 85730; 86078; 86334; 86850; 86900; 86923; 87040; 87070; 87077; 87081; 87086; 87186; 87205; 87400; 93005; 93306; 93970; 94002; 94003; 94150; 94640; G0378; J0744; J0878; J1100; J1170; J1561; J1644; J2543; J2704; J2795; J2930; J3010; J3370; J7613; J7620; J7626; 92523-GN; A9575; C1751; J0171; J0330; J1200; J1720; J1815; J1940; J2920; J3475; J3490; J7030; J7040; J7050; J7120; P9037; P9040

== ENCOUNTER 2019-04-27 12:13 | Emergency (ER) | payer MEDICARE ==
[~2019-04-27] VITALS: Ht 162.6 cm; Wt 61.9 kg
[~2019-04-27 12:13] MED LIST: CEFT2PIG IVPB; DILT180C53 PO; GABA-827 PO; GABA300C10 PO; LIDO700A20 TD; MEGE400O6 PO; OXYC5SOL8 PO; PIPE3.375 IV; TBO-300S SQ; ZOLP-413 PO
--- NOTE | 2019-04-27 12:23 | NUR ---
SANDER AND POLISHER: PT STRAIGHT BACKED TO ROOM, R/T IMMUNOCROMPRAMISE, GAIT SLOW AND STEADY WITH ROLLING WALKER.
--- NOTE | 2019-04-27 13:16 | NUR ---
pt resting in [facility]. pt's aox4. resps even and unlabonred. all monitors in place. call light within reach.
[2019-04-27] MEDS ORDERED: HYDROcodone/APAP 5/325 TABLET PO ONE (14:00)
[2019-04-27] MEDS ORDERED: HYDROcodone/APAP 5/325 TABLET ONE (14:02)
--- NOTE | 2019-04-27 14:09 | NUR ---
PT BACK TO ROOM FROM CT AT THIS TIME.
--- NOTE | 2019-04-27 14:11 | NUR ---
PT MEDICATED PER EMAR FOR PAIN. PT TOLERATED WELL.
--- NOTE | 2019-04-27 15:34 | NUR ---
PT RESTING IN [facility]. PT'S AOX4. RESPS EVEN AND UNLABORED. ALL MONITORS IN PLACE. CALL LIGHT WITHIN REACH.
[2019-04-27] MEDS ORDERED: DILTIAZEM 60 MG TABLET ONE (16:22)
--- NOTE | 2019-04-27 16:25 | NUR ---
PT MEDICATED PER EMAR. PT TOLERATED WELL.
[2019-04-27] MEDS ORDERED: DILTIAZEM 30 MG TABLET PO ONE (16:30)
--- NOTE | 2019-04-27 17:18 | NUR ---
pt back to room from ct at this time.
[2019-04-27 17:23] VITALS: BP 129/76
--- NOTE | 2019-04-27 17:43 | NUR ---
Patient given discharge instructions and they have confirmed that they understand the instructions.
== END 2019-04-27 17:44 | disposition home or self-care (01) ==
LOC: ED 14:20
DX: S00.83XA Contusion of other part of head, initial encounter (principal); S00.531A Contusion of lip, initial encounter; W18.09XA Striking against other object with subsequent fall, initial encounter; Y93.89 Activity, other specified; Y92.89 Other specified places as the place of occurrence of the external cause; Y99.8 Other external cause status
CPT/HCPCS: 70450; 70486; 99285

== ENCOUNTER → 2019-05-06 | Outpatient (CLI) | payer MEDICARE | END | disposition home or self-care (01) | LOC: RAD 12:30 | PROVIDERS: ATTEND Internal Medicine Hematology & Oncology | DX: C85.90 Non-Hodgkin lymphoma, unspecified, unspecified site (principal); I67.82 Cerebral ischemia | CPT/HCPCS: 70450 ==

== ENCOUNTER 2019-05-16 16:03 | Inpatient (IN) | payer MEDICARE ==
[~2019-05-16] VITALS: Ht 175.3 cm; Wt 76.2 kg
[2019-05-16] MEDS ORDERED: PLEASE ENTER HEIGHT AND WEIGHT MC SCH (16:11)
--- NOTE | 2019-05-16 16:22 | NUR ---
PT BIB BY EMS. HOME HEALTH NURSE CALLED 911 BECAUSE OVER THE PAST 2 WEEKS PT HAS BECOME DROWSY AND INCREASGINLY FATIGUED. THIS MORNING THE PT WAS ALTERED ONLY ORIENTATED TO PERSON. LAST KNOW WELL TIME WAS LAST NIGHT BEFORE BED. PT ALSO HAS NEW ONSET BILAT LOWER LEG SWELLING AND PRODUCTIVE COUGH. HX: AFIB. PT IS 140 AFIB ON MONITOR. TAKES DILT. NO HISTORY OF DEMENTIA OR ALZ PT IS A0X1. MD IS BEDSIDE. EKG HAS BEEN COMPLETED
[2019-05-16] MEDS ORDERED: DILTIAZEM 5 MG/ML, 5ML IV ONE (16:30)
[2019-05-16] MEDS ORDERED: SODIUM CHLORIDE FLUSH 10ML SYR IVF ONE (16:30)
[2019-05-16] MEDS: DILTIAZEM 125 MG in SODIUM CHLORIDE 0.9% 100 ML IV SCH (17:07)
--- NOTE | 2019-05-16 17:08 | NUR ---
PT RESTING IN [facility]. FEMALE RN PRESENT FOR STRAIGHT CATH
[2019-05-16] MEDS ORDERED: CEFTRIAXONE PMX 1GM/50ML 50 ML IVPB ONE (17:30)
[2019-05-16] MEDS ORDERED: AZITHROMYCIN 500 MG in SODIUM CHLORIDE 0.9% 250 ML IVPB ONE (17:30)
[2019-05-16 17:32] LABS: INTERNATIONAL NORMALIZED RATIO 1.19 (0.93-1.1); PROTHROMBIN TIME 12.6 Seconds (9.6-11.5)
[2019-05-16 17:34] LABS: ALBUMIN 2.2 g/dL (3.4-5.0); ANION GAP 10 mmol/L (5-15); CALCIUM 9.3 mg/dL (8.5-10.1); CHLORIDE 105 mmol/L (98-107)
[2019-05-16 17:36] LABS: ALANINE AMINOTRANSFERASE 7 U/L (12-78); ALKALINE PHOSPHATASE 114 U/L (45-117); BILIRUBIN,TOTAL 3.5 mg/dL (0.2-1.0); CREATININE 0.74 mg/dL (0.55-1.02); TOTAL PROTEIN 6.6 g/dL (6.4-8.2)
--- NOTE | 2019-05-16 17:50 | NUR ---
HEATER PROVIDED TO PATEINT FOR COMFORT.
--- NOTE | 2019-05-16 17:50 | NUR ---
ABX THERAPY ATARTED AND PIV PLACED. VSS.
[2019-05-16 17:51] LABS: MEAN CORPUSCULAR HEMOGLOBIN 31.5 pg (27.0-34.8); MEAN CORPUSCULAR HGB CONC 32.3 g/dL (32.4-35.8); MEAN CORPUSCULAR VOLUME 97.4 fL (80-100); MEAN PLATELET VOLUME 7.5 fL (7.4-10.4); RED BLOOD COUNT 3.01 x10^6/uL (3.82-5.3); RED CELL DISTRIBUTION WIDTH 19.3 % (9.6-15.2)
[2019-05-16 17:53] LABS: MICROSCOPIC INDICATED
[2019-05-16 17:53] LABS: PLATELET COUNT 5 x10^3/uL (130-400)
[2019-05-16 17:54] LABS: MD YES
[2019-05-16 18:01] LABS: CULTURE INDICATED? NO
[2019-05-16 18:01] LABS: ANISOCYTOSIS 1+; BAND#(MANUAL) 0.22 x10^3/uL; BANDS%(MANUAL) 6 % (0-7); LYMPH#(MANUAL) 0.67 x10^3/uL (1-3.4); LYMPHS% (MANUAL) 18 % (22-44); METAMYELOCYTES# (MANUAL) 0.04 x10^3/uL (0-0); METAMYELOCYTES% (MANUAL) 1 % (0-1); MONOS% (MANUAL) 8 % (2-9); SEG#(MANUAL) 2.48 x10^3/uL (1.8-6.8); SEGS% (MANUAL) 67 % (42-75)
[2019-05-16 18:02] LABS: POLYCHROMASIA 1+
[2019-05-16 18:04] LABS: OVALOCYTES 1+; TEAR DROPS 1+
[2019-05-16 18:05] LABS: <PLATELET ESTIMATE> DECREASED; <PLT MORPHOLOGY> NORMAL PLT MORPH
[2019-05-16] MEDS ORDERED: LORazepam 2 MG/ML, 1ML ONE (18:25)
[2019-05-16] MEDS ORDERED: LORazepam 2 MG/ML, 1ML IVPush ONE (18:30)
[2019-05-16] MEDS ORDERED: ACETAMINOPHEN 650 MG SUPP ONE (19:13)
[2019-05-16] MEDS ORDERED: ACETAMINOPHEN 325 MG SUPP ONE (19:13)
[2019-05-16] MEDS: ACETAMINOPHEN 650 MG SUPP PR PRN (19:18)
--- NOTE | 2019-05-16 19:23 | NUR ---
PT HAD A RECTAL TEMP OF 103. COOLING MEASURES IN PLACE. NOTFIED. SEE MAR FOR INTERVENTIONS
[2019-05-16] MEDS ORDERED: ACETAMINOPHEN 325 MG SUPP PR PRN (19:30)
[2019-05-16] MEDS ORDERED: SODIUM CHLORIDE FLUSH 10ML SYR IVF PRN (20:00)
--- NOTE | 2019-05-16 20:03 | NUR ---
PT URINATED THE BED. BEDSHEETS CHANGED. PILLOW PROVIDED.
[2019-05-16] MEDS ORDERED: PIPERACILLIN/TAZO/PMX 3.375GM 0 ML ONE (20:27)
[2019-05-16] MEDS ORDERED: PIPERACILLIN/TAZO/PMX 3.375GM 50 ML ONE (20:27)
[2019-05-16] MEDS: PIPERACILLIN/TAZO/PMX 3.375GM 50 ML IV SCH (20:30)
[2019-05-16] MEDS ORDERED: BISACODYL 10 MG SUPP PR PRN (20:30)
[2019-05-16] MEDS ORDERED: POLYETHYLENE GLYCOL 17 GM PACKET PO PRN (20:30)
[2019-05-16] MEDS: GABAPENTIN 400 MG CAPSULE PO SCH (20:30)
[2019-05-16] MEDS ORDERED: VANCOMYCIN PER PHARMACY MC PRN (20:30)
[2019-05-16] MEDS ORDERED: HEPARIN 5,000 UNITS/ML, 1ML SQ SCH (20:30)
[2019-05-16] MEDS ORDERED: ONDANSETRON ODT 4 MG PO PRN (20:30)
[2019-05-16] MEDS ORDERED: OXYcodone 5 MG/5 ML ORAL.SOL UDC PO PRN (20:30)
[2019-05-16] MEDS: LIDODERM 5% PATCH TD SCH (20:30)
[2019-05-16] MEDS ORDERED: VANCOMYCIN 1,600 MG in SODIUM CHLORIDE 0.9% 250 ML IV ONE (21:00)
[2019-05-16 21:15] VITALS: BP 108/59
[2019-05-16 21:30] VITALS: BP 109/57
[2019-05-16] MEDS ORDERED: PHARMACOKINETIC MONITORING MC PRN (22:00)
[2019-05-16] MEDS ORDERED: HALOPERIDOL 5 MG/ML ONE (22:19)
--- NOTE | 2019-05-16 22:33 | NUR ---
BEDSIDE REPORT RECEIVED FROM ERNA BRYANT. ASSUMED CARE OF PT. PT APPEARS RESTLESS, TOSSING AND TURNING ON GURNEY. DENIES ANY COMPLAINTS HOWEVER IS ONLY ORIENTED X2. ACCORDING TO DAY SHIFT ANNETTE UMANZOR, THE PT'S MENTATION HAS IMPROVED GREATLY FROM ARRIVAL. RECTAL TEMP NOW 100.5. HR 120, SINUS TACH ON THE MONITOR. NO ECTOPY NOTED. O2 SAT 95% ON O2 2LPM VIA NC. Addendum: 05/16/19 at 2252 by PERRY PT IS AFIB ON THE MONITOR, WITH OCCASIONAL UNIFOCAL PVCS, RATE OF 115-120.
[2019-05-16 22:46] VITALS: BP 109/66
--- NOTE | 2019-05-16 22:50 | NUR ---
FIRST SET OF PLATELETS COMPLETE. PT IS NOT EXHIBITING ANY SIGNS OF A REACTION. SHE IS STILL RESTLESS, TOSSING AND TURNING, TRYING TO GET OUT OF BED. ORDERS RECEIVED FROM ANNETTA HOFFMAN FOR HALDOL IV. PT MEDICATED PER EMAR. 5 RIGHTS ADDRESSED.
--- NOTE | 2019-05-16 22:52 | NUR ---
PT MOVED TO ROOM 28 AND PLACED ON A HOSPITAL BED
[2019-05-16] MEDS ORDERED: HALOPERIDOL 5 MG/ML IV ONE (23:00)
--- NOTE | 2019-05-16 23:18 | NUR ---
PURPLE SLIP SENT TO BLOOD BANK
--- NOTE | 2019-05-16 23:28 | NUR ---
PT RESTING COMFORTABLY ON HOSPITAL BED WITH EYES CLOSED. AROUSES TO VERBAL STIMULI. ALL VITALS REMAIN STABLE. AWAITING PLATELETS AT THIS TIME. WILL CONTINUE TO MONITOR.
[2019-05-17] VITALS (12 sets, daily range): BP systolic 93–126; BP diastolic 52–72
--- NOTE | 2019-05-17 00:28 | NUR ---
2ND UNIT OF PLATELETS STARTED. PT FEBRILE WITH A RECTAL TEMP OF 101.4. MD AWARE. OK TO CONTINUE WITH TRANSUFSION
--- NOTE | 2019-05-17 00:43 | NUR ---
PT RESTING IN BED, VSS, PLATELETS INFUSING, NO ACUTE CHANGES NOTED AT THIS TIME.
[2019-05-17] MEDS ORDERED: ACETAMINOPHEN 650 MG SUPP ONE ×2 (00:53→01:15)
[2019-05-17] MEDS: ACETAMINOPHEN 650 MG SUPP PR PRN (01:30)
--- NOTE | 2019-05-17 01:33 | NUR ---
RECTAL TYLENOL ADMINISTERED FOR FEVER. PT REMAINS ALERT BUT CONFUSED, ORIENTED TO SELF. RESTING QUIETLY ON HOSPITAL BED. ALL VITALS REMAIN STABLE. O2 SAT 95% ON O2 @ 2LPM. NO DISTRESS NOTED
[2019-05-17] MEDS: PIPERACILLIN/TAZO/PMX 3.375GM 50 ML IV SCH ×3 (02:30→18:20)
[2019-05-17] MEDS ORDERED: PIPERACILLIN/TAZO/PMX 3.375GM 50 ML ONE (02:48)
[2019-05-17] MEDS: DILTIAZEM 125 MG in SODIUM CHLORIDE 0.9% 100 ML IV SCH (05:21)
[2019-05-17 05:38] LABS: ANION GAP 16 mmol/L (5-15); CALCIUM 9.5 mg/dL (8.5-10.1); CHLORIDE 108 mmol/L (98-107); CREATININE 0.91 mg/dL (0.55-1.02)
[2019-05-17] MEDS: SODIUM CHLORIDE 0.9% 1,000 ML IV SCH ×3 (06:07→22:37)
[2019-05-17 06:52] LABS: MEAN CORPUSCULAR HGB CONC 32.6 g/dL (32.4-35.8); MEAN CORPUSCULAR VOLUME 98.1 fL (80-100); RED BLOOD COUNT 2.42 x10^6/uL (3.82-5.3); RED CELL DISTRIBUTION WIDTH 19.3 % (9.6-15.2)
[2019-05-17 07:12] LABS: MEAN PLATELET VOLUME 8.5 fL (7.4-10.4)
[2019-05-17 07:14] LABS: PLATELET COUNT 5 x10^3/uL (130-400)
[2019-05-17 07:20] LABS: MD YES
[2019-05-17 07:21] LABS: BANDS%(MANUAL) 9 % (0-7); LYMPH#(MANUAL) 0.53 x10^3/uL (1-3.4); LYMPHS% (MANUAL) 12 % (22-44); METAMYELOCYTES# (MANUAL) 0.04 x10^3/uL (0-0); METAMYELOCYTES% (MANUAL) 1 % (0-1); MONOS#(MANUAL) 0.18 x10^3/uL (0.3-2.7); MONOS% (MANUAL) 4 % (2-9); SEG#(MANUAL) 3.26 x10^3/uL (1.8-6.8); SEGS% (MANUAL) 74 % (42-75)
[2019-05-17 07:22] LABS: ANISOCYTOSIS 1+; OVALOCYTES 1+; POLYCHROMASIA 1+; TEAR DROPS 1+
[2019-05-17 07:23] LABS: <PLATELET ESTIMATE> DECREASED; <PLT MORPHOLOGY> QNS FOR PLT MORPH; PMNS WITH VACUOLES 1+
[2019-05-17] MEDS: SENNA/DOCUSATE TABLET PO SCH (09:00)
[2019-05-17] MEDS ORDERED: INSTRUCTION SEE COMMENTS XX PRN (09:30)
[2019-05-17] MEDS ORDERED: PHARMACY INSTRUCTION MC PRN (09:30)
[2019-05-17] MEDS ORDERED: DILTIAZEM CD 180 MG CAP.ER.24H PO SCH (10:00)
[2019-05-17] MEDS ORDERED: OSELTAMIVIR 75 MG CAPSULE PO SCH (10:00)
[2019-05-17] MEDS ORDERED: POTASSIUM CHLORIDE 20 MEQ TAB.ER.PRT PO ONE (10:00)
[2019-05-17] MEDS: MEGESTROL ORAL.SUSP 40 MG/ML PO SCH (10:27)
[2019-05-17] MEDS: QUETIAPINE 25MG TABLET PO PRN ×2 (10:28→23:39)
[2019-05-17] MEDS: VANCOMYCIN 1,300 MG in SODIUM CHLORIDE 0.9% 250 ML IV SCH (11:22)
[2019-05-17] MEDS: TBO-FILGRASTIM 300 MCG/0.5 ML SQ SCH (11:22)
[2019-05-17] MEDS ORDERED: ACETAMINOPHEN 325 MG TABLET ONE (12:22)
[2019-05-17] MEDS: ACETAMINOPHEN 325 MG TABLET PO PRN ×2 (12:25→21:19)
[2019-05-17] MEDS: GABAPENTIN 400 MG CAPSULE PO SCH (14:41)
[2019-05-17] MEDS: GUAIFENESIN/DM 200-20MG, 10ML UDC PO PRN (21:19)
[2019-05-17] MEDS: LIDODERM 5% PATCH TD SCH (21:19)
[2019-05-17] MEDS: MELATONIN 3 MG TABLET PO SCH (21:19)
[2019-05-18] VITALS (8 sets, daily range): BP systolic 88–111; BP diastolic 50–82
[2019-05-18] MEDS: PIPERACILLIN/TAZO/PMX 3.375GM 50 ML IV SCH ×6 (00:54→17:48)
[2019-05-18] MEDS: VANCOMYCIN 1,300 MG in SODIUM CHLORIDE 0.9% 250 ML IV SCH (05:00)
[2019-05-18] MEDS: DILTIAZEM 60 MG TABLET PO SCH ×5 (08:00→19:53)
[2019-05-18 09:11] LABS: MEAN CORPUSCULAR HEMOGLOBIN 31.5 pg (27.0-34.8); MEAN CORPUSCULAR HGB CONC 32.2 g/dL (32.4-35.8); MEAN CORPUSCULAR VOLUME 97.7 fL (80-100); RED BLOOD COUNT 2.53 x10^6/uL (3.82-5.3); RED CELL DISTRIBUTION WIDTH 18.7 % (9.6-15.2)
[2019-05-18 09:16] LABS: ANION GAP 7 mmol/L (5-15); CALCIUM 9.6 mg/dL (8.5-10.1); CHLORIDE 110 mmol/L (98-107); CREATININE 0.59 mg/dL (0.55-1.02)
[2019-05-18 09:34] LABS: PLATELET COUNT 4 x10^3/uL (130-400)
[2019-05-18 09:39] LABS: MD YES
[2019-05-18 09:46] LABS: <PLATELET ESTIMATE> DECREASED; <PLT MORPHOLOGY> QNS FOR PLT MORPH; ANISOCYTOSIS 1+; BAND#(MANUAL) 0.27 x10^3/uL; BANDS%(MANUAL) 8 % (0-7); EOS#(MANUAL) 0.03 x10^3/uL (0.0-0.4); EOS% (MANUAL) 1 % (1-7); LYMPH#(MANUAL) 0.37 x10^3/uL (1-3.4); LYMPHS% (MANUAL) 11 % (22-44); MONOS#(MANUAL) 0.27 x10^3/uL (0.3-2.7); MONOS% (MANUAL) 8 % (2-9); OVALOCYTES 1+; POLYCHROMASIA 1+; SEG#(MANUAL) 2.45 x10^3/uL (1.8-6.8); SEGS% (MANUAL) 72 % (42-75); TEAR DROPS 1+
[2019-05-18] MEDS: SODIUM CHLORIDE 0.9% 1,000 ML IV SCH (10:55)
[2019-05-18] MEDS ORDERED: POTASSIUM CHLORIDE 20 MEQ TAB.ER.PRT PO ONE ×2 (11:00→14:30)
[2019-05-18] MEDS: TBO-FILGRASTIM 300 MCG/0.5 ML SQ SCH (11:20)
[2019-05-18] MEDS: MEGESTROL ORAL.SUSP 40 MG/ML PO SCH (11:22)
[2019-05-18] MEDS: SENNA/DOCUSATE TABLET PO SCH (11:22)
[2019-05-18 12:25] LABS: D-DIMER (DIC) 1.22 ug/mlFEU (0.00-0.52); PROTIME 12.6 Seconds (9.6-11.5)
[2019-05-18] MEDS ORDERED: DILTIAZEM 125 MG in SODIUM CHLORIDE 0.9% 100 ML IV SCH (16:05)
[2019-05-18] MEDS: LIDODERM 5% PATCH TD SCH ×2 (19:53→19:57)
[2019-05-18] MEDS: QUETIAPINE 25MG TABLET PO PRN (19:53)
[2019-05-18] MEDS: MELATONIN 3 MG TABLET PO SCH (19:54)
[2019-05-18 20:54] LABS: CLOSTRIDIUM DIFFICILE ANTIGEN POSITIVE; CLOSTRIDIUM DIFFICILE TOXIN NEGATIVE (Negative)
[2019-05-18] MEDS ORDERED: HALOPERIDOL 5 MG TABLET PO PRN (23:00)
[2019-05-19] VITALS (12 sets, daily range): BP systolic 90–128; BP diastolic 46–73
[2019-05-19] MEDS: PIPERACILLIN/TAZO/PMX 3.375GM 50 ML IV SCH ×5 (00:41→19:35)
[2019-05-19] MEDS: DILTIAZEM 60 MG TABLET PO SCH ×4 (05:24→20:23)
[2019-05-19] MEDS: SENNA/DOCUSATE TABLET PO SCH (07:33)
[2019-05-19] MEDS: MEGESTROL ORAL.SUSP 40 MG/ML PO SCH (08:32)
[2019-05-19] MEDS: TBO-FILGRASTIM 300 MCG/0.5 ML SQ SCH (08:32)
[2019-05-19 08:50] LABS: ANION GAP 7 mmol/L (5-15); CALCIUM 9.5 mg/dL (8.5-10.1); CHLORIDE 113 mmol/L (98-107); CREATININE 0.63 mg/dL (0.55-1.02)
[2019-05-19 09:33] LABS: MD YES
[2019-05-19 09:35] LABS: MEAN CORPUSCULAR HEMOGLOBIN 31.6 pg (27.0-34.8); MEAN CORPUSCULAR HGB CONC 32.9 g/dL (32.4-35.8); MEAN CORPUSCULAR VOLUME 96.2 fL (80-100); RED BLOOD COUNT 2.56 x10^6/uL (3.82-5.3); RED CELL DISTRIBUTION WIDTH 18.6 % (9.6-15.2)
[2019-05-19 09:36] LABS: HCT (SEDRATE) 24.6 % (34.6-47.8)
[2019-05-19 09:38] LABS: MEAN PLATELET VOLUME 8.2 fL (7.4-10.4)
[2019-05-19 09:40] LABS: PLATELET COUNT 6 x10^3/uL (130-400)
[2019-05-19 09:48] LABS: BAND#(MANUAL) 0.34 x10^3/uL; BANDS%(MANUAL) 8 % (0-7); EOS#(MANUAL) 0.04 x10^3/uL (0.0-0.4); EOS% (MANUAL) 1 % (1-7); MONOS#(MANUAL) 0.25 x10^3/uL (0.3-2.7); MONOS% (MANUAL) 6 % (2-9); NRBC % (MANUAL) 2 % (0-1); SEG#(MANUAL) 3.23 x10^3/uL (1.8-6.8); SEGS% (MANUAL) 77 % (42-75)
[2019-05-19 09:49] LABS: LYMPH#(MANUAL) 0.29 x10^3/uL (1-3.4); LYMPHS% (MANUAL) 7 % (22-44); METAMYELOCYTES# (MANUAL) 0.04 x10^3/uL (0-0); METAMYELOCYTES% (MANUAL) 1 % (0-1)
[2019-05-19 09:52] LABS: ANISOCYTOSIS 1+
[2019-05-19 09:53] LABS: TEAR DROPS 1+
[2019-05-19 09:54] LABS: OVALOCYTES 1+; POLYCHROMASIA 1+
[2019-05-19 09:55] LABS: <PLATELET ESTIMATE> DECREASED; <PLT MORPHOLOGY> QNS FOR PLT MORPH
[2019-05-19] MEDS: ACETAMINOPHEN 325 MG TABLET PO PRN ×2 (12:28→20:23)
[2019-05-19] MEDS: metroNIDAZOLE 500 MG TABLET PO SCH (16:51)
[2019-05-19] MEDS: LIDODERM 5% PATCH TD SCH (20:23)
[2019-05-19] MEDS: QUETIAPINE 25MG TABLET PO PRN (20:23)
[2019-05-19] MEDS: MELATONIN 3 MG TABLET PO SCH (20:23)
[2019-05-20] VITALS (7 sets, daily range): BP systolic 80–116; BP diastolic 51–65
[2019-05-20] MEDS: PIPERACILLIN/TAZO/PMX 3.375GM 50 ML IV SCH ×4 (00:59→20:15)
[2019-05-20] MEDS: metroNIDAZOLE 500 MG TABLET PO SCH ×3 (00:59→17:04)
[2019-05-20] MEDS: DILTIAZEM 60 MG TABLET PO SCH ×4 (06:37→20:20)
[2019-05-20] MEDS: TBO-FILGRASTIM 300 MCG/0.5 ML SQ SCH (08:58)
[2019-05-20] MEDS: SENNA/DOCUSATE TABLET PO SCH (08:58)
[2019-05-20] MEDS: MEGESTROL ORAL.SUSP 40 MG/ML PO SCH (08:58)
[2019-05-20] MEDS: ACETAMINOPHEN 325 MG TABLET PO PRN ×2 (08:58→17:04)
[2019-05-20 08:59] LABS: MEAN CORPUSCULAR HEMOGLOBIN 32.3 pg (27.0-34.8); MEAN CORPUSCULAR HGB CONC 32.9 g/dL (32.4-35.8); RED BLOOD COUNT 2.55 x10^6/uL (3.82-5.3); RED CELL DISTRIBUTION WIDTH 18.9 % (9.6-15.2)
[2019-05-20 09:06] LABS: ANION GAP 5 mmol/L (5-15); CALCIUM 9.8 mg/dL (8.5-10.1); CHLORIDE 112 mmol/L (98-107)
[2019-05-20 09:24] LABS: MD YES; MEAN PLATELET VOLUME 8.7 fL (7.4-10.4)
[2019-05-20 09:26] LABS: BAND#(MANUAL) 0.61 x10^3/uL; BANDS%(MANUAL) 13 % (0-7); EOS#(MANUAL) 0.09 x10^3/uL (0.0-0.4); EOS% (MANUAL) 2 % (1-7); LYMPH#(MANUAL) 0.42 x10^3/uL (1-3.4); LYMPHS% (MANUAL) 9 % (22-44); MONOS#(MANUAL) 0.38 x10^3/uL (0.3-2.7); MONOS% (MANUAL) 8 % (2-9); REACTIVE LYMPHS # (MANUAL) 0.05 x10^3/uL (0-0); REACTIVE LYMPHS % (MANUAL) 1 % (0-0); SEG#(MANUAL) 3.15 x10^3/uL (1.8-6.8); SEGS% (MANUAL) 67 % (42-75); TOXIC GRAN 1+
[2019-05-20 09:27] LABS: ANISOCYTOSIS 1+; OVALOCYTES 1+; PMNS WITH VACUOLES 1+; TEAR DROPS 1+
[2019-05-20 09:28] LABS: <PLATELET ESTIMATE> DECREASED; <PLT MORPHOLOGY> QNS FOR PLT MORPH
[2019-05-20 09:29] LABS: PLATELET COUNT 6 x10^3/uL (130-400)
[2019-05-20] MEDS ORDERED: GENTAMICIN PER PHARMACY MC PRN (11:30)
[2019-05-20] MEDS ORDERED: PHARMACOKINETIC CONSULTATION MC ONE (12:00)
[2019-05-20] MEDS ORDERED: PHARMACOKINETIC MONITORING MC PRN (12:00)
[2019-05-20] MEDS: GENTAMICIN 120 MG in SODIUM CHLORIDE 0.9% 50 ML IV SCH ×2 (12:22→20:09)
[2019-05-20] MEDS ORDERED: SODIUM CHLORIDE 0.9%, 250ML IVBOLUS ONE (13:30)
[2019-05-20] MEDS: LIDODERM 5% PATCH TD SCH (20:16)
[2019-05-20] MEDS: MELATONIN 3 MG TABLET PO SCH (20:16)
[2019-05-21] MEDS: ACETAMINOPHEN 325 MG TABLET PO PRN ×3 (00:03→20:54)
[2019-05-21 00:37] VITALS: BP 107/63
[2019-05-21] MEDS: metroNIDAZOLE 500 MG TABLET PO SCH ×3 (01:04→17:37)
[2019-05-21] MEDS: PIPERACILLIN/TAZO/PMX 3.375GM 50 ML IV SCH ×4 (02:15→20:55)
[2019-05-21] MEDS: GUAIFENESIN/DM 200-20MG, 10ML UDC PO PRN (02:18)
[2019-05-21] MEDS: GENTAMICIN 120 MG in SODIUM CHLORIDE 0.9% 50 ML IV SCH (04:14)
[2019-05-21] MEDS: QUETIAPINE 25MG TABLET PO PRN (04:27)
[2019-05-21 04:44] LABS: ANION GAP 7 mmol/L (5-15); CALCIUM 9.3 mg/dL (8.5-10.1); CHLORIDE 108 mmol/L (98-107)
[2019-05-21 04:46] LABS: CREATININE 0.65 mg/dL (0.55-1.02)
[2019-05-21 05:20] LABS: MD YES
[2019-05-21 05:21] LABS: MEAN CORPUSCULAR HEMOGLOBIN 31.4 pg (27.0-34.8); MEAN CORPUSCULAR HGB CONC 31.9 g/dL (32.4-35.8); MEAN CORPUSCULAR VOLUME 98.4 fL (80-100); MEAN PLATELET VOLUME 7.3 fL (7.4-10.4); RED CELL DISTRIBUTION WIDTH 18.8 % (9.6-15.2)
[2019-05-21 05:23] LABS: BAND#(MANUAL) 0.81 x10^3/uL; BANDS%(MANUAL) 15 % (0-7); EOS#(MANUAL) 0.05 x10^3/uL (0.0-0.4); EOS% (MANUAL) 1 % (1-7); LYMPH#(MANUAL) 0.32 x10^3/uL (1-3.4); LYMPHS% (MANUAL) 6 % (22-44); METAMYELOCYTES# (MANUAL) 0.16 x10^3/uL (0-0); METAMYELOCYTES% (MANUAL) 3 % (0-1); MONOS#(MANUAL) 0.27 x10^3/uL (0.3-2.7); MONOS% (MANUAL) 5 % (2-9); MYELOCYTES# (MANUAL) 0.05 x10^3/uL (0-0); MYELOCYTES% (MANUAL) 1 % (0-0); NRBC % (MANUAL) 1 % (0-1); SEG#(MANUAL) 3.73 x10^3/uL (1.8-6.8); SEGS% (MANUAL) 69 % (42-75)
[2019-05-21 05:24] LABS: <PLATELET ESTIMATE> DECREASED; <PLT MORPHOLOGY> QNS FOR PLT MORPH; ANISOCYTOSIS 1+; OVALOCYTES 1+; PLATELET COUNT 4 x10^3/uL (130-400); PMNS WITH VACUOLES 1+; POLYCHROMASIA 1+; TEAR DROPS 1+; TOXIC GRAN 1+
[2019-05-21 07:06] VITALS: BP 113/62
[2019-05-21] MEDS: SENNA/DOCUSATE TABLET PO SCH (08:50)
[2019-05-21] MEDS: DILTIAZEM 60 MG TABLET PO SCH ×4 (08:56→20:19)
[2019-05-21] MEDS: MEGESTROL ORAL.SUSP 40 MG/ML PO SCH (08:57)
[2019-05-21] MEDS: TBO-FILGRASTIM 300 MCG/0.5 ML SQ SCH (08:57)
[2019-05-21] MEDS ORDERED: IMMUNE GLOBULIN IV SCH (12:00)
[2019-05-21 12:36] VITALS: BP 120/72
[2019-05-21] MEDS ORDERED: GENTAMICIN 350 MG in SODIUM CHLORIDE 0.9% 100 ML IV SCH (13:00)
[2019-05-21] MEDS: GENTAMICIN 350 MG in SODIUM CHLORIDE 0.9% 100 ML IV SCH (15:50)
[2019-05-21] MEDS ORDERED: ALBUTEROL SULFATE 2.5 MG/3 ML ONE (16:45)
[2019-05-21] MEDS ORDERED: ALBUTEROL SULFATE 2.5 MG/3 ML NPPB PRN (17:30)
[2019-05-21 17:36] VITALS: BP 104/64
[2019-05-21 19:07] VITALS: BP 95/61
[2019-05-21] MEDS: MELATONIN 3 MG TABLET PO SCH (20:54)
[2019-05-21] MEDS: LIDODERM 5% PATCH TD SCH (20:55)
[2019-05-22 01:33] VITALS: BP 101/69
[2019-05-22] MEDS: PIPERACILLIN/TAZO/PMX 3.375GM 50 ML IV SCH ×4 (01:45→21:06)
[2019-05-22] MEDS: metroNIDAZOLE 500 MG TABLET PO SCH ×3 (01:45→17:07)
[2019-05-22 05:49] LABS: CHLORIDE 106 mmol/L (98-107)
[2019-05-22 05:55] LABS: ANION GAP 7 mmol/L (5-15); CALCIUM 9.2 mg/dL (8.5-10.1); CREATININE 0.61 mg/dL (0.55-1.02)
[2019-05-22 06:08] LABS: MEAN CORPUSCULAR HEMOGLOBIN 31.2 pg (27.0-34.8); MEAN CORPUSCULAR HGB CONC 32.6 g/dL (32.4-35.8); MEAN CORPUSCULAR VOLUME 95.5 fL (80-100); RED BLOOD COUNT 2.07 x10^6/uL (3.82-5.3); RED CELL DISTRIBUTION WIDTH 18.5 % (9.6-15.2)
[2019-05-22 06:37] VITALS: BP 112/66
[2019-05-22 06:39] LABS: MEAN PLATELET VOLUME 8.1 fL (7.4-10.4)
[2019-05-22 06:41] LABS: PLATELET COUNT 7 x10^3/uL (130-400)
[2019-05-22 06:42] LABS: MD YES
[2019-05-22 06:51] LABS: ANISOCYTOSIS 1+; BAND#(MANUAL) 0.98 x10^3/uL; BANDS%(MANUAL) 13 % (0-7); LYMPH#(MANUAL) 0.23 x10^3/uL (1-3.4); LYMPHS% (MANUAL) 3 % (22-44); METAMYELOCYTES% (MANUAL) 4 % (0-1); MONOS#(MANUAL) 0.15 x10^3/uL (0.3-2.7); MONOS% (MANUAL) 2 % (2-9); MYELOCYTES# (MANUAL) 0.68 x10^3/uL (0-0); MYELOCYTES% (MANUAL) 9 % (0-0); SEG#(MANUAL) 5.18 x10^3/uL (1.8-6.8); SEGS% (MANUAL) 69 % (42-75)
[2019-05-22 06:52] LABS: OVALOCYTES 1+; POLYCHROMASIA 1+
[2019-05-22 06:53] LABS: PMNS WITH VACUOLES 1+; TEAR DROPS 1+; TOXIC GRAN 1+
[2019-05-22 06:54] LABS: <PLATELET ESTIMATE> DECREASED; <PLT MORPHOLOGY> QNS FOR PLT MORPH
[2019-05-22] MEDS: TBO-FILGRASTIM 300 MCG/0.5 ML SQ SCH (08:26)
[2019-05-22] MEDS: SENNA/DOCUSATE TABLET PO SCH (08:26)
[2019-05-22] MEDS: DILTIAZEM 60 MG TABLET PO SCH ×4 (08:26→21:07)
[2019-05-22] MEDS: MEGESTROL ORAL.SUSP 40 MG/ML PO SCH (08:27)
[2019-05-22 13:46] VITALS: BP 112/61
[2019-05-22] MEDS: GENTAMICIN 350 MG in SODIUM CHLORIDE 0.9% 100 ML IV SCH (15:08)
[2019-05-22 19:36] VITALS: BP 99/63
[2019-05-22] MEDS: LIDODERM 5% PATCH TD SCH (20:30)
[2019-05-22] MEDS: MELATONIN 3 MG TABLET PO SCH (21:06)
[2019-05-23] MEDS: metroNIDAZOLE 500 MG TABLET PO SCH ×3 (00:59→16:01)
[2019-05-23 01:17] VITALS: BP 110/70
[2019-05-23] MEDS: PIPERACILLIN/TAZO/PMX 3.375GM 50 ML IV SCH ×4 (02:42→20:24)
[2019-05-23 05:27] LABS: MEAN CORPUSCULAR HEMOGLOBIN 30.9 pg (27.0-34.8); MEAN CORPUSCULAR HGB CONC 32.3 g/dL (32.4-35.8); MEAN CORPUSCULAR VOLUME 95.5 fL (80-100); MEAN PLATELET VOLUME 9.2 fL (7.4-10.4); RED BLOOD COUNT 2.06 x10^6/uL (3.82-5.3); RED CELL DISTRIBUTION WIDTH 18.3 % (9.6-15.2)
[2019-05-23 05:29] LABS: ALBUMIN 1.7 g/dL (3.4-5.0); ANION GAP 6 mmol/L (5-15); CALCIUM 8.4 mg/dL (8.5-10.1); CHLORIDE 104 mmol/L (98-107)
[2019-05-23 05:36] LABS: ALANINE AMINOTRANSFERASE < 6 U/L (12-78); ALKALINE PHOSPHATASE 104 U/L (45-117); BILIRUBIN,TOTAL 1.1 mg/dL (0.2-1.0); CREATININE 0.61 mg/dL (0.55-1.02); TOTAL PROTEIN 5.2 g/dL (6.4-8.2)
[2019-05-23 05:40] LABS: PLATELET COUNT 10 x10^3/uL (130-400)
[2019-05-23 05:46] LABS: HCT (SEDRATE) 19.6 % (34.6-47.8)
[2019-05-23 05:50] LABS: MD YES
[2019-05-23 05:53] LABS: ANISOCYTOSIS 1+; BAND#(MANUAL) 1.29 x10^3/uL; BANDS%(MANUAL) 13 % (0-7); EOS% (MANUAL) 2 % (1-7); LYMPHS% (MANUAL) 3 % (22-44); METAMYELOCYTES% (MANUAL) 2 % (0-1); MONOS% (MANUAL) 4 % (2-9); MYELOCYTES# (MANUAL) 0.59 x10^3/uL (0-0); MYELOCYTES% (MANUAL) 6 % (0-0); OVALOCYTES 1+; PMNS WITH VACUOLES 1+; POLYCHROMASIA 1+; SEG#(MANUAL) 6.93 x10^3/uL (1.8-6.8); SEGS% (MANUAL) 70 % (42-75); TEAR DROPS 1+; TOXIC GRAN 1+
[2019-05-23 05:54] LABS: <PLATELET ESTIMATE> DECREASED; <PLT MORPHOLOGY> QNS FOR PLT MORPH
[2019-05-23 06:13] VITALS: BP 110/60
[2019-05-23] MEDS: DILTIAZEM 60 MG TABLET PO SCH ×4 (06:19→20:24)
[2019-05-23] MEDS: MEGESTROL ORAL.SUSP 40 MG/ML PO SCH (08:15)
[2019-05-23] MEDS: TBO-FILGRASTIM 300 MCG/0.5 ML SQ SCH (08:15)
[2019-05-23] MEDS: SENNA/DOCUSATE TABLET PO SCH (08:16)
[2019-05-23 13:45] VITALS: BP 98/61
[2019-05-23] MEDS: GENTAMICIN 350 MG in SODIUM CHLORIDE 0.9% 100 ML IV SCH (15:14)
[2019-05-23 19:15] VITALS: BP 108/66
[2019-05-23] MEDS: MELATONIN 3 MG TABLET PO SCH (20:24)
[2019-05-23] MEDS: LIDODERM 5% PATCH TD SCH (20:25)
[2019-05-24] MEDS: metroNIDAZOLE 500 MG TABLET PO SCH ×3 (01:24→16:17)
[2019-05-24] MEDS: PIPERACILLIN/TAZO/PMX 3.375GM 50 ML IV SCH ×4 (02:06→19:54)
[2019-05-24 02:12] VITALS: BP 114/65
[2019-05-24] MEDS: DILTIAZEM 60 MG TABLET PO SCH ×4 (04:44→21:09)
[2019-05-24 05:48] LABS: ANION GAP 8 mmol/L (5-15); CALCIUM 8.8 mg/dL (8.5-10.1); CHLORIDE 103 mmol/L (98-107); CREATININE 0.53 mg/dL (0.55-1.02)
[2019-05-24 05:52] LABS: MEAN CORPUSCULAR HEMOGLOBIN 31.4 pg (27.0-34.8); MEAN CORPUSCULAR HGB CONC 33.3 g/dL (32.4-35.8); MEAN CORPUSCULAR VOLUME 94.2 fL (80-100); RED BLOOD COUNT 2.07 x10^6/uL (3.82-5.3); RED CELL DISTRIBUTION WIDTH 18.1 % (9.6-15.2)
[2019-05-24 06:18] LABS: MD YES
[2019-05-24 06:21] VITALS: BP 100/53
[2019-05-24 06:22] LABS: BAND#(MANUAL) 0.77 x10^3/uL; BANDS%(MANUAL) 6 % (0-7); LYMPH#(MANUAL) 0.26 x10^3/uL (1-3.4); LYMPHS% (MANUAL) 2 % (22-44); METAMYELOCYTES# (MANUAL) 0.13 x10^3/uL (0-0); METAMYELOCYTES% (MANUAL) 1 % (0-1); MONOS#(MANUAL) 0.39 x10^3/uL (0.3-2.7); MONOS% (MANUAL) 3 % (2-9); MYELOCYTES# (MANUAL) 0.52 x10^3/uL (0-0); MYELOCYTES% (MANUAL) 4 % (0-0); SEG#(MANUAL) 10.84 x10^3/uL (1.8-6.8); SEGS% (MANUAL) 84 % (42-75)
[2019-05-24 06:23] LABS: ANISOCYTOSIS 1+; OVALOCYTES 1+; PMNS WITH VACUOLES 1+; POLYCHROMASIA 1+; TEAR DROPS 1+; TOXIC GRAN 1+
[2019-05-24 06:24] LABS: <PLATELET ESTIMATE> DECREASED; <PLT MORPHOLOGY> QNS FOR PLT MORPH
[2019-05-24 06:26] LABS: MEAN PLATELET VOLUME 11.1 fL (7.4-10.4)
[2019-05-24 06:28] LABS: PLATELET COUNT 11 x10^3/uL (130-400)
[2019-05-24] MEDS: TBO-FILGRASTIM 300 MCG/0.5 ML SQ SCH (08:34)
[2019-05-24] MEDS: MEGESTROL ORAL.SUSP 40 MG/ML PO SCH (08:36)
[2019-05-24] MEDS: SENNA/DOCUSATE TABLET PO SCH (08:36)
[2019-05-24 12:31] VITALS: BP 114/67
[2019-05-24] MEDS: GENTAMICIN 350 MG in SODIUM CHLORIDE 0.9% 100 ML IV SCH (15:17)
[2019-05-24 19:38] VITALS: BP 122/70
[2019-05-24] MEDS: LIDODERM 5% PATCH TD SCH (19:56)
[2019-05-24] MEDS: MELATONIN 3 MG TABLET PO SCH (21:09)
[2019-05-25] VITALS (15 sets, daily range): BP systolic 98–130; BP diastolic 59–78
[2019-05-25] MEDS: metroNIDAZOLE 500 MG TABLET PO SCH (01:09)
[2019-05-25] MEDS: PIPERACILLIN/TAZO/PMX 3.375GM 50 ML IV SCH ×4 (02:09→21:06)
[2019-05-25] MEDS: ACETAMINOPHEN 325 MG TABLET PO PRN ×2 (02:18→14:07)
[2019-05-25 05:01] LABS: ANION GAP 6 mmol/L (5-15); CALCIUM 8.3 mg/dL (8.5-10.1); CHLORIDE 103 mmol/L (98-107)
[2019-05-25 05:03] LABS: CREATININE 0.58 mg/dL (0.55-1.02)
[2019-05-25 05:05] LABS: MEAN CORPUSCULAR HEMOGLOBIN 31.3 pg (27.0-34.8); MEAN CORPUSCULAR VOLUME 95.1 fL (80-100); RED BLOOD COUNT 2.01 x10^6/uL (3.82-5.3)
[2019-05-25 05:07] LABS: MEAN PLATELET VOLUME 10.4 fL (7.4-10.4)
[2019-05-25 05:08] LABS: PLATELET COUNT 18 x10^3/uL (130-400)
[2019-05-25] MEDS: DILTIAZEM 60 MG TABLET PO SCH ×4 (05:58→21:06)
[2019-05-25 06:01] LABS: MD YES
[2019-05-25 06:03] LABS: ANISOCYTOSIS 1+; BAND#(MANUAL) 0.59 x10^3/uL; BANDS%(MANUAL) 4 % (0-7); EOS#(MANUAL) 0.15 x10^3/uL (0.0-0.4); EOS% (MANUAL) 1 % (1-7); LYMPH#(MANUAL) 1.78 x10^3/uL (1-3.4); LYMPHS% (MANUAL) 12 % (22-44); METAMYELOCYTES# (MANUAL) 0.74 x10^3/uL (0-0); METAMYELOCYTES% (MANUAL) 5 % (0-1); MONOS% (MANUAL) 2 % (2-9); MYELOCYTES% (MANUAL) 2 % (0-0); OVALOCYTES 1+; POLYCHROMASIA 1+; SEG#(MANUAL) 10.95 x10^3/uL (1.8-6.8); SEGS% (MANUAL) 74 % (42-75)
[2019-05-25 06:04] LABS: <PLATELET ESTIMATE> DECREASED; <PLT MORPHOLOGY> NORMAL PLT MORPH; PMNS WITH VACUOLES 1+; TOXIC GRAN 1+
[2019-05-25 06:06] LABS: TEAR DROPS 1+
[2019-05-25] MEDS: SENNA/DOCUSATE TABLET PO SCH (08:17)
[2019-05-25] MEDS: VANCOMYCIN 50 MG/ML ORAL SUSP PO SCH ×2 (08:26→21:19)
[2019-05-25] MEDS: MEGESTROL ORAL.SUSP 40 MG/ML PO SCH (08:27)
[2019-05-25] MEDS: LIDODERM 5% PATCH TD SCH (20:30)
[2019-05-25] MEDS: MELATONIN 3 MG TABLET PO SCH (21:06)
[2019-05-26] MEDS: ACETAMINOPHEN 325 MG TABLET PO PRN ×2 (00:38→14:46)
[2019-05-26 00:41] VITALS: BP 118/70
[2019-05-26] MEDS: PIPERACILLIN/TAZO/PMX 3.375GM 50 ML IV SCH ×4 (01:27→23:53)
[2019-05-26] MEDS: DILTIAZEM 60 MG TABLET PO SCH ×4 (05:57→20:42)
[2019-05-26 07:07] LABS: ANION GAP 6 mmol/L (5-15); CALCIUM 8.2 mg/dL (8.5-10.1); CHLORIDE 102 mmol/L (98-107); CREATININE 0.73 mg/dL (0.55-1.02)
[2019-05-26 07:55] LABS: MEAN CORPUSCULAR HEMOGLOBIN 29.5 pg (27.0-34.8); MEAN CORPUSCULAR HGB CONC 31.8 g/dL (32.4-35.8); MEAN CORPUSCULAR VOLUME 92.8 fL (80-100); RED BLOOD COUNT 3.05 x10^6/uL (3.82-5.3)
[2019-05-26 07:57] LABS: MD YES
[2019-05-26 07:59] LABS: MEAN PLATELET VOLUME 10.3 fL (7.4-10.4)
[2019-05-26 08:05] LABS: LYMPH#(MANUAL) 0.39 x10^3/uL (1-3.4); LYMPHS% (MANUAL) 5 % (22-44); METAMYELOCYTES# (MANUAL) 0.46 x10^3/uL (0-0); METAMYELOCYTES% (MANUAL) 6 % (0-1); MONOS#(MANUAL) 0.39 x10^3/uL (0.3-2.7); MONOS% (MANUAL) 5 % (2-9); MYELOCYTES# (MANUAL) 0.31 x10^3/uL (0-0); MYELOCYTES% (MANUAL) 4 % (0-0); NRBC % (MANUAL) 1 % (0-1); REACTIVE LYMPHS # (MANUAL) 0.08 x10^3/uL (0-0); REACTIVE LYMPHS % (MANUAL) 1 % (0-0)
[2019-05-26 08:08] LABS: BAND#(MANUAL) 1.39 x10^3/uL; BANDS%(MANUAL) 18 % (0-7); SEGS% (MANUAL) 61 % (42-75)
[2019-05-26 08:09] LABS: <PLATELET ESTIMATE> DECREASED; <PLT MORPHOLOGY> NORMAL PLT MORPH; ANISOCYTOSIS 1+; OVALOCYTES 1+; PMNS WITH VACUOLES 1+; POLYCHROMASIA 1+; TEAR DROPS 1+; TOXIC GRAN 1+
[2019-05-26 08:11] LABS: PLATELET COUNT 19 x10^3/uL (130-400)
[2019-05-26 08:30] VITALS: BP 114/72
[2019-05-26] MEDS: MEGESTROL ORAL.SUSP 40 MG/ML PO SCH (09:00)
[2019-05-26] MEDS ORDERED: GENTAMICIN 350 MG in SODIUM CHLORIDE 0.9% 100 ML IV SCH (09:00)
[2019-05-26] MEDS: SENNA/DOCUSATE TABLET PO SCH (09:00)
[2019-05-26] MEDS: VANCOMYCIN 50 MG/ML ORAL SUSP PO SCH ×2 (10:07→20:42)
[2019-05-26 13:25] VITALS: BP 123/74
[2019-05-26 19:24] VITALS: BP 135/83
[2019-05-26] MEDS: LIDODERM 5% PATCH TD SCH (20:41)
[2019-05-26] MEDS: MELATONIN 3 MG TABLET PO SCH (20:42)
[2019-05-27 00:28] VITALS: BP 139/81
[2019-05-27] MEDS: PIPERACILLIN/TAZO/PMX 3.375GM 50 ML IV SCH (06:08)
[2019-05-27] MEDS: DILTIAZEM 60 MG TABLET PO SCH ×3 (06:09→16:31)
[2019-05-27 06:32] LABS: ANION GAP 7 mmol/L (5-15); CALCIUM 8.2 mg/dL (8.5-10.1); CHLORIDE 101 mmol/L (98-107); CREATININE 0.57 mg/dL (0.55-1.02)
[2019-05-27 06:33] LABS: MEAN CORPUSCULAR HEMOGLOBIN 29.9 pg (27.0-34.8); MEAN CORPUSCULAR HGB CONC 32.4 g/dL (32.4-35.8); MEAN CORPUSCULAR VOLUME 92.1 fL (80-100); RED BLOOD COUNT 2.68 x10^6/uL (3.82-5.3); RED CELL DISTRIBUTION WIDTH 17.4 % (9.6-15.2)
[2019-05-27 07:34] VITALS: BP 130/73
[2019-05-27 07:58] LABS: MD YES; MEAN PLATELET VOLUME 10.2 fL (7.4-10.4)
[2019-05-27 08:04] LABS: PLATELET COUNT 15 x10^3/uL (130-400)
[2019-05-27 08:18] LABS: BAND#(MANUAL) 0.35 x10^3/uL; BANDS%(MANUAL) 8 % (0-7); EOS#(MANUAL) 0.04 x10^3/uL (0.0-0.4); EOS% (MANUAL) 1 % (1-7); LYMPH#(MANUAL) 0.48 x10^3/uL (1-3.4); LYMPHS% (MANUAL) 11 % (22-44); METAMYELOCYTES# (MANUAL) 0.18 x10^3/uL (0-0); METAMYELOCYTES% (MANUAL) 4 % (0-1); MONOS#(MANUAL) 0.18 x10^3/uL (0.3-2.7); MONOS% (MANUAL) 4 % (2-9); MYELOCYTES# (MANUAL) 0.18 x10^3/uL (0-0); MYELOCYTES% (MANUAL) 4 % (0-0); NRBC % (MANUAL) 2 % (0-1); REACTIVE LYMPHS # (MANUAL) 0.13 x10^3/uL (0-0); REACTIVE LYMPHS % (MANUAL) 3 % (0-0); SEG#(MANUAL) 2.86 x10^3/uL (1.8-6.8); SEGS% (MANUAL) 65 % (42-75)
[2019-05-27 08:19] LABS: <PLATELET ESTIMATE> DECREASED; <PLT MORPHOLOGY> NORMAL PLT MORPH; ANISOCYTOSIS 1+; TOXIC GRAN 2+
[2019-05-27 08:20] LABS: PMNS WITH VACUOLES 1+
[2019-05-27] MEDS: SENNA/DOCUSATE TABLET PO SCH (08:28)
[2019-05-27] MEDS: CEFEPIME 2 GM in DEXTROSE 5% 100 ML IV SCH ×2 (08:28→16:31)
[2019-05-27] MEDS: MEGESTROL ORAL.SUSP 40 MG/ML PO SCH (08:28)
[2019-05-27] MEDS: VANCOMYCIN 50 MG/ML ORAL SUSP PO SCH (08:29)
[2019-05-27] MEDS ORDERED: POTASSIUM CHLORIDE 20 MEQ TAB.ER.PRT PO ONE (09:30)
[2019-05-27 11:25] VITALS: BP 135/84
[2019-05-27] MEDS: ACETAMINOPHEN 325 MG TABLET PO PRN (13:20)
[2019-05-27 14:56] VITALS: BP 114/80
[2019-05-27] MEDS ORDERED: VANC1VIA3 PO (17:08)
[2019-05-27] MEDS ORDERED: CEFE2FRO IV (17:08)
[2019-05-27] MEDS ORDERED: DILT60TA27 PO (17:08)
[2019-05-27 18:50] VITALS: BP 131/79
== END 2019-05-27 19:04 | disposition home health service (06) | DRG 871 ==
LOC: ED 17:22 → EDIP 19:45 → 3WST 05-17 16:46 → 4WST 05-18 12:42
PROVIDERS: ADMIT Internal Medicine; ATTEND Hospitalist
PROC: 30233R1 Transfusion of Nonautologous Platelets into Peripheral Vein, Percutaneous Approach (ICD-10-PCS; 2019-05-16)
PROC: 0T9B70Z Drainage of Bladder with Drainage Device, Via Natural or Artificial Opening (ICD-10-PCS; 2019-05-16)
PROC: 30233N1 Transfusion of Nonautologous Red Blood Cells into Peripheral Vein, Percutaneous Approach (ICD-10-PCS; 2019-05-25)
PROC: 02HV33Z Insertion of Infusion Device into Superior Vena Cava, Percutaneous Approach (ICD-10-PCS; principal; 2019-05-26)
PROC: B548ZZA Ultrasonography of Superior Vena Cava, Guidance (ICD-10-PCS; 2019-05-26)
DX: A41.52 Sepsis due to Pseudomonas (principal); J18.9 Pneumonia, unspecified organism; J96.91 Respiratory failure, unspecified with hypoxia; G93.41 Metabolic encephalopathy; J10.00 Influenza due to other identified influenza virus with unspecified type of pneumonia; C85.90 Non-Hodgkin lymphoma, unspecified, unspecified site; R17 Unspecified jaundice; D61.818 Other pancytopenia; Z99.11 Dependence on respirator [ventilator] status; I38 Endocarditis, valve unspecified; M45.9 Ankylosing spondylitis of unspecified sites in spine; D63.8 Anemia in other chronic diseases classified elsewhere; G89.29 Other chronic pain; I10 Essential (primary) hypertension; I48.91 Unspecified atrial fibrillation; D69.59 Other secondary thrombocytopenia; Z03.818 Encounter for observation for suspected exposure to other biological agents ruled out; I89.0 Lymphedema, not elsewhere classified; Z22.1 Carrier of other intestinal infectious diseases; I25.2 Old myocardial infarction; Z82.49 Family history of ischemic heart disease and other diseases of the circulatory system; Z92.21 Personal history of antineoplastic chemotherapy; Z95.2 Presence of prosthetic heart valve; Z90.710 Acquired absence of both cervix and uterus; Y95 Nosocomial condition
CPT/HCPCS: 36415; 36573; 70100; 70450; 71045; 80048; 80053; 80170; 81001; 82962; 83605; 83880; 84145; 85025; 85049; 85379; 85384; 85610; 85651; 85730; 86140; 86850; 86900; 86923; 87040; 87077; 87186; 87324; 87493; 93005; 93308; 93321; 93325; 94640; 96365; 96367; 96375; G0378; J0456; J0696; J2543; J3370; J7613; Q0162; C1751; J1447; J1561; J1580; J1630; J2060; J7030; J7050; P9037; P9040

== ENCOUNTER 2019-06-15 19:00 | Emergency (ER) | payer MEDICARE ==
[2019-06-15] VITALS (8 sets, daily range): BP systolic 122–136; BP diastolic 61–80
[~2019-06-15] VITALS: Ht 162.6 cm; Wt 73.0 kg
[~2019-06-15 19:00] MED LIST changes: +CEFE2FRO IV; +DILT60TA27 PO; +VANC1VIA3 PO
--- NOTE | 2019-06-15 19:21 | NUR ---
pt sent by for blood transfusion. HGB 6.2. vss. Pt complaining of general weakness. pt placed on monitor and call light in reach
[2019-06-15 19:57] LABS: MEAN CORPUSCULAR HEMOGLOBIN 32.7 pg (27.0-34.8); MEAN CORPUSCULAR HGB CONC 33.5 g/dL (32.4-35.8); MEAN CORPUSCULAR VOLUME 97.4 fL (80-100); MEAN PLATELET VOLUME 10.2 fL (7.4-10.4); RED BLOOD COUNT 2.04 x10^6/uL (3.82-5.3); RED CELL DISTRIBUTION WIDTH 23.1 % (9.6-15.2)
[2019-06-15 19:58] LABS: PLATELET COUNT 17 x10^3/uL (130-400)
[2019-06-15 20:03] LABS: ALBUMIN 2.1 g/dL (3.4-5.0); ANION GAP 7 mmol/L (5-15); CALCIUM 8.4 mg/dL (8.5-10.1); CHLORIDE 108 mmol/L (98-107); CREATININE 0.51 mg/dL (0.55-1.02)
[2019-06-15] MEDS ORDERED: POTASSIUM CHLORIDE 40 MEQ in SODIUM CHLORIDE 0.9% 1,000 ML IV ONE (20:06)
[2019-06-15] MEDS ORDERED: POTASSIUM CHLORIDE 20 MEQ TAB.ER.PRT ONE (20:18)
[2019-06-15] MEDS ORDERED: NS + 40MEQ KCL 0 ML IV ONE (20:20)
[2019-06-15 20:28] LABS: MD YES
[2019-06-15] MEDS ORDERED: POTASSIUM CHLORIDE 20 MEQ TAB.ER.PRT PO ONE (20:30)
[2019-06-15 20:34] LABS: BAND#(MANUAL) 0.47 x10^3/uL; BANDS%(MANUAL) 7 % (0-7); EOS#(MANUAL) 0.07 x10^3/uL (0.0-0.4); EOS% (MANUAL) 1 % (1-7); LYMPHS% (MANUAL) 6 % (22-44); METAMYELOCYTES% (MANUAL) 3 % (0-1); MONOS#(MANUAL) 0.13 x10^3/uL (0.3-2.7); MONOS% (MANUAL) 2 % (2-9); MYELOCYTES# (MANUAL) 0.13 x10^3/uL (0-0); MYELOCYTES% (MANUAL) 2 % (0-0); SEG#(MANUAL) 5.29 x10^3/uL (1.8-6.8); SEGS% (MANUAL) 79 % (42-75)
[2019-06-15 20:35] LABS: ANISOCYTOSIS 1+
[2019-06-15 20:36] LABS: OVALOCYTES 1+; POLYCHROMASIA 1+; TEAR DROPS 1+; TOXIC GRAN 1+
[2019-06-15 20:37] LABS: PMNS WITH VACUOLES 1+
[2019-06-15 20:38] LABS: <PLATELET ESTIMATE> DECREASED; <PLT MORPHOLOGY> NORMAL PLT MORPH
--- NOTE | 2019-06-15 21:22 | NUR ---
BLOOD STARTED. PT TOLERATING WELL. VSS. FAMILY AT BEDSIDE. PT GIVEN A SANDWICH. OK PER
--- NOTE | 2019-06-15 22:27 | NUR ---
PT RETING AND TOLERATING BLOOD WELL. WILL ORDER PLATLETS WHEN UNIT IS DONE
--- NOTE | 2019-06-15 23:20 | NUR ---
PLATLETS RUNNING. PT TOLERATING WELL WITH NO COMPLAINTS. VSS. SPOUSE AT BEDSIDE
[2019-06-16] VITALS: BP 130/81
--- NOTE | 2019-06-16 00:15 | NUR ---
Patient given discharge instructions and they have confirmed that they understand the instructions. Patient ambulatory with steady gait. Patient taken out by wheelchair.
== END 2019-06-16 00:19 ==
LOC: ED 22:56
DX: D64.9 Anemia, unspecified (principal); C81.90 Hodgkin lymphoma, unspecified, unspecified site; D69.6 Thrombocytopenia, unspecified; E87.6 Hypokalemia; I48.91 Unspecified atrial fibrillation
CPT/HCPCS: 36415; 36430; 80048; 82040; 85025; 86850; 86900; 86923; 96365; 99285; J3480; J7030; P9037; P9040

== ENCOUNTER → 2019-09-13 | Outpatient (CLI) | payer MEDICARE ==
[~2019-09-13] MED LIST changes: +CIPR750T PO; +DIGO125T85 PO; +FURO40TA6 PO; +OMNIPAQUE 350 MG/ML, 100ML BOTTLE ONE
== END | disposition home or self-care (01) ==
LOC: CFH 08:14
PROVIDERS: ATTEND Internal Medicine Hematology & Oncology
DX: C85.90 Non-Hodgkin lymphoma, unspecified, unspecified site (principal); K40.90 Unilateral inguinal hernia, without obstruction or gangrene, not specified as recurrent; J90 Pleural effusion, not elsewhere classified; J18.9 Pneumonia, unspecified organism; R16.2 Hepatomegaly with splenomegaly, not elsewhere classified; M51.37 Other intervertebral disc degeneration, lumbosacral region; M48.54XA Collapsed vertebra, not elsewhere classified, thoracic region, initial encounter for fracture
CPT/HCPCS: 71260; 74177; Q9967

== ENCOUNTER 2019-11-13 17:52 | Inpatient (IN) | payer MEDICARE ==
[~2019-11-13] VITALS: Ht 162.6 cm; Wt 59.0 kg
[~2019-11-13 17:52] MED LIST changes: -OMNIPAQUE 350 MG/ML, 100ML BOTTLE ONE
--- NOTE | 2019-11-13 18:35 | NUR ---
first contact with pt. pt c/o left wrist pain/swelling with about 3 cm blackish blisters. pt stated"it was small red dot on thursday and now it's painful and big." pt denies any other sx. pt's aox4. resps even and unlabored. bp/spo2 monitors in place. call light within reach.
--- NOTE | 2019-11-13 18:46 | NUR ---
report given to bria ricci.
[2019-11-13] MEDS ORDERED: ONDANSETRON 2MG/ML, 2ML IVPush ONE (19:00)
[2019-11-13] MEDS ORDERED: SODIUM CHLORIDE FLUSH 10ML SYR IVF ONE (19:00)
[2019-11-13] MEDS ORDERED: SODIUM CHLORIDE 0.9% 1,000ML IVBOLUS ONE (19:00)
[2019-11-13] MEDS ORDERED: HYDROmorphone 1 MG/ML, 1ML INJ IVPush PRN (19:00)
[2019-11-13] MEDS ORDERED: HYDROmorphone 1 MG/ML, 1ML INJ ONE (19:13)
[2019-11-13] MEDS ORDERED: ONDANSETRON 2MG/ML, 2ML ONE (19:14)
[2019-11-13 19:36] LABS: ALANINE AMINOTRANSFERASE 17 U/L (12-78); ALBUMIN 3.1 g/dL (3.4-5.0); ANION GAP 8 mmol/L (5-15); CHLORIDE 98 mmol/L (98-107); CREATININE 1.07 mg/dL (0.55-1.02)
[2019-11-13 19:39] LABS: ALKALINE PHOSPHATASE 151 U/L (45-117); BILIRUBIN,TOTAL 0.6 mg/dL (0.2-1.0); MEAN CORPUSCULAR HEMOGLOBIN 34.5 pg (27.0-34.8); MEAN CORPUSCULAR HGB CONC 33.2 g/dL (32.4-35.8); MEAN PLATELET VOLUME 9.4 fL (7.4-10.4); RED BLOOD COUNT 2.92 x10^6/uL (3.82-5.3); RED CELL DISTRIBUTION WIDTH 22.3 % (9.6-15.2); TOTAL PROTEIN 8.4 g/dL (6.4-8.2)
[2019-11-13] MEDS ORDERED: ASPI-515 PO (20:02)
[2019-11-13] MEDS ORDERED: POTA20TA89 PO (20:02)
[2019-11-13 20:05] LABS: PLATELET COUNT 30 x10^3/uL (130-400)
--- NOTE | 2019-11-13 20:05 | NUR ---
Pt given water after md ayoub oral fluids.
[2019-11-13 20:06] LABS: MD YES
[2019-11-13 20:10] LABS: ANISOCYTOSIS 1+; BAND#(MANUAL) 0.66 x10^3/uL; BANDS%(MANUAL) 10 % (0-7); EOS% (MANUAL) 3 % (1-7); LYMPH#(MANUAL) 0.59 x10^3/uL (1-3.4); LYMPHS% (MANUAL) 9 % (22-44); MONOS% (MANUAL) 3 % (2-9); POLYCHROMASIA 1+; SEG#(MANUAL) 4.95 x10^3/uL (1.8-6.8); SEGS% (MANUAL) 75 % (42-75)
[2019-11-13 20:11] LABS: <PLATELET ESTIMATE> DECREASED; <PLT MORPHOLOGY> NORMAL PLT MORPH; PMNS WITH VACUOLES 1+; TOXIC GRAN 1+
[2019-11-13] MEDS ORDERED: VANCOMYCIN PER PHARMACY MC PRN (20:30)
[2019-11-13] MEDS ORDERED: PLEASE ENTER HEIGHT AND WEIGHT MC SCH (21:00)
[2019-11-13] MEDS ORDERED: DOCUSATE 100 MG CAPSULE PO PRN (21:00)
[2019-11-13] MEDS ORDERED: PHARMACY MAY ADJ FOR RENAL FX MC PRN (21:00)
[2019-11-13 21:15] VITALS: BP 118/65
[2019-11-13] MEDS: GABAPENTIN 300 MG CAPSULE PO PRN (21:32)
[2019-11-13] MEDS ORDERED: VANCOMYCIN 1,600 MG in SODIUM CHLORIDE 0.9% 250 ML IV ONE (22:00)
[2019-11-13] MEDS: PIPERACILLIN/TAZO/PMX 3.375GM 50 ML IV SCH (22:04)
[2019-11-13] MEDS: DILTIAZEM 60 MG TABLET PO SCH (22:04)
[2019-11-14 02:40] VITALS: BP 117/71
[2019-11-14] MEDS: PIPERACILLIN/TAZO/PMX 3.375GM 50 ML IV SCH ×4 (04:23→21:59)
[2019-11-14 05:00] LABS: ANION GAP 5 mmol/L (5-15); CALCIUM 8.4 mg/dL (8.5-10.1); CHLORIDE 102 mmol/L (98-107); CREATININE 0.92 mg/dL (0.55-1.02)
[2019-11-14 05:04] LABS: MEAN CORPUSCULAR HEMOGLOBIN 35.2 pg (27.0-34.8); MEAN CORPUSCULAR HGB CONC 33.5 g/dL (32.4-35.8); MEAN PLATELET VOLUME 8.6 fL (7.4-10.4); RED BLOOD COUNT 2.39 x10^6/uL (3.82-5.3); RED CELL DISTRIBUTION WIDTH 22.2 % (9.6-15.2)
[2019-11-14 05:23] LABS: PLATELET COUNT 36 x10^3/uL (130-400)
[2019-11-14 05:30] LABS: MD YES
[2019-11-14] MEDS: GABAPENTIN 300 MG CAPSULE PO PRN (05:30)
[2019-11-14] MEDS: DILTIAZEM 60 MG TABLET PO SCH ×4 (05:30→21:59)
[2019-11-14 05:32] LABS: <PLATELET ESTIMATE> DECREASED; ANISOCYTOSIS 1+; BAND#(MANUAL) 0.09 x10^3/uL; BANDS%(MANUAL) 2 % (0-7); EOS#(MANUAL) 0.04 x10^3/uL (0.0-0.4); EOS% (MANUAL) 1 % (1-7); LYMPHS% (MANUAL) 7 % (22-44); METAMYELOCYTES# (MANUAL) 0.04 x10^3/uL (0-0); METAMYELOCYTES% (MANUAL) 1 % (0-1); MONOS#(MANUAL) 0.17 x10^3/uL (0.3-2.7); MONOS% (MANUAL) 4 % (2-9); POLYCHROMASIA 1+; SEG#(MANUAL) 3.66 x10^3/uL (1.8-6.8); SEGS% (MANUAL) 85 % (42-75)
[2019-11-14 05:33] LABS: <PLT MORPHOLOGY> NORMAL PLT MORPH
[2019-11-14] MEDS ORDERED: ASPIRIN 81 MG TABLET EC PO SCH ×2 (09:00)
[2019-11-14 09:05] VITALS: BP 129/73
[2019-11-14] MEDS: FUROSEMIDE 40 MG TABLET PO SCH (09:56)
[2019-11-14] MEDS: DIGOXIN 0.125 MG TABLET PO SCH (09:56)
[2019-11-14] MEDS: OXYcodone IR 5MG TABLET PO PRN ×3 (09:56→21:59)
[2019-11-14] MEDS: POTASSIUM CHLORIDE 20 MEQ TAB.ER.PRT PO SCH (09:56)
[2019-11-14] MEDS ORDERED: GADOTERATE 7.5 MMOL/15 ML SYR ONE (11:00)
[2019-11-14 14:00] VITALS: BP 116/55
[2019-11-14 14:30] VITALS: BP 124/65
[2019-11-14] MEDS: DAPTOMYCIN 400 MG in SODIUM CHLORIDE 0.9% 100 ML IVPB SCH (17:48)
[2019-11-14 19:07] VITALS: BP 153/74
[2019-11-14] MEDS ORDERED: VANCOMYCIN 1,300 MG in SODIUM CHLORIDE 0.9% 250 ML IV SCH (22:00)
[2019-11-15] MEDS: PIPERACILLIN/TAZO/PMX 3.375GM 50 ML IV SCH ×4 (04:19→22:39)
[2019-11-15] MEDS: OXYcodone IR 5MG TABLET PO PRN ×2 (04:33→20:39)
[2019-11-15 04:35] VITALS: BP 133/61
[2019-11-15] MEDS: DILTIAZEM 60 MG TABLET PO SCH ×4 (04:40→20:10)
[2019-11-15 05:10] LABS: MEAN CORPUSCULAR HEMOGLOBIN 35.1 pg (27.0-34.8); MEAN CORPUSCULAR HGB CONC 33.8 g/dL (32.4-35.8); MEAN PLATELET VOLUME 8.7 fL (7.4-10.4); RED BLOOD COUNT 2.34 x10^6/uL (3.82-5.3); RED CELL DISTRIBUTION WIDTH 21.7 % (9.6-15.2)
[2019-11-15 06:23] LABS: MD YES
[2019-11-15 06:24] LABS: PLATELET COUNT 40 x10^3/uL (130-400)
[2019-11-15 06:26] LABS: BAND#(MANUAL) 0.06 x10^3/uL; BANDS%(MANUAL) 2 % (0-7); EOS#(MANUAL) 0.03 x10^3/uL (0.0-0.4); EOS% (MANUAL) 1 % (1-7); LYMPH#(MANUAL) 0.47 x10^3/uL (1-3.4); LYMPHS% (MANUAL) 15 % (22-44); METAMYELOCYTES# (MANUAL) 0.06 x10^3/uL (0-0); METAMYELOCYTES% (MANUAL) 2 % (0-1); MONOS#(MANUAL) 0.06 x10^3/uL (0.3-2.7); MONOS% (MANUAL) 2 % (2-9); MYELOCYTES# (MANUAL) 0.03 x10^3/uL (0-0); MYELOCYTES% (MANUAL) 1 % (0-0); SEG#(MANUAL) 2.39 x10^3/uL (1.8-6.8); SEGS% (MANUAL) 77 % (42-75)
[2019-11-15 06:27] LABS: ANISOCYTOSIS 1+; POLYCHROMASIA 1+
[2019-11-15 06:28] LABS: <PLATELET ESTIMATE> DECREASED; <PLT MORPHOLOGY> NORMAL PLT MORPH
[2019-11-15 09:13] VITALS: BP 115/63
[2019-11-15] MEDS: DIGOXIN 0.125 MG TABLET PO SCH (11:08)
[2019-11-15] MEDS: POTASSIUM CHLORIDE 20 MEQ TAB.ER.PRT PO SCH (11:08)
[2019-11-15] MEDS: FUROSEMIDE 40 MG TABLET PO SCH (11:09)
[2019-11-15 13:34] VITALS: BP 122/63
[2019-11-15] MEDS: DAPTOMYCIN 400 MG in SODIUM CHLORIDE 0.9% 100 ML IVPB SCH (17:28)
[2019-11-15 20:10] VITALS: BP 121/69
[2019-11-16] MEDS: OXYcodone IR 5MG TABLET PO PRN ×2 (01:04→23:13)
[2019-11-16 01:09] VITALS: BP 134/79
[2019-11-16] MEDS: PIPERACILLIN/TAZO/PMX 3.375GM 50 ML IV SCH ×2 (04:00→11:27)
[2019-11-16] MEDS: ACETAMINOPHEN 325 MG TABLET PO PRN ×3 (04:15→18:09)
[2019-11-16] MEDS: GABAPENTIN 300 MG CAPSULE PO PRN ×3 (06:43→21:06)
[2019-11-16] MEDS: DILTIAZEM 60 MG TABLET PO SCH ×4 (06:43→21:07)
[2019-11-16 08:21] VITALS: BP 123/63
[2019-11-16] MEDS: DIGOXIN 0.125 MG TABLET PO SCH (11:27)
[2019-11-16] MEDS: POTASSIUM CHLORIDE 20 MEQ TAB.ER.PRT PO SCH (11:27)
[2019-11-16] MEDS: FUROSEMIDE 40 MG TABLET PO SCH (11:27)
[2019-11-16 12:37] VITALS: BP 130/77
[2019-11-16] MEDS: DAPTOMYCIN 400 MG in SODIUM CHLORIDE 0.9% 100 ML IVPB SCH (17:24)
[2019-11-16 19:21] VITALS: BP 117/63
[2019-11-17 02:33] VITALS: BP 120/66
[2019-11-17] MEDS: MELATONIN 5 MG TABLET PO PRN ×2 (02:39→21:40)
[2019-11-17] MEDS: ACETAMINOPHEN 325 MG TABLET PO PRN ×4 (02:39→21:40)
[2019-11-17] MEDS: GABAPENTIN 300 MG CAPSULE PO PRN ×3 (05:43→23:57)
[2019-11-17] MEDS: DILTIAZEM 60 MG TABLET PO SCH ×4 (05:43→21:40)
[2019-11-17 06:15] LABS: ANION GAP 7 mmol/L (5-15); CALCIUM 8.6 mg/dL (8.5-10.1); CHLORIDE 100 mmol/L (98-107)
[2019-11-17 06:17] LABS: CREATININE 0.86 mg/dL (0.55-1.02)
[2019-11-17 06:30] LABS: MEAN CORPUSCULAR HEMOGLOBIN 34.6 pg (27.0-34.8); MEAN PLATELET VOLUME 9.1 fL (7.4-10.4); RED BLOOD COUNT 2.62 x10^6/uL (3.82-5.3)
[2019-11-17 07:03] LABS: PLATELET COUNT 33 x10^3/uL (130-400)
[2019-11-17 07:28] LABS: MD YES
[2019-11-17 07:34] LABS: BASOS#(MANUAL) 0.02 x10^3/uL (0-0.1); BASOS% (MANUAL) 1 % (0-1); LYMPH#(MANUAL) 0.83 x10^3/uL (1-3.4); LYMPHS% (MANUAL) 55 % (22-44); METAMYELOCYTES# (MANUAL) 0.03 x10^3/uL (0-0); METAMYELOCYTES% (MANUAL) 2 % (0-1); MONOS#(MANUAL) 0.12 x10^3/uL (0.3-2.7); MONOS% (MANUAL) 8 % (2-9); MYELOCYTES# (MANUAL) 0.02 x10^3/uL (0-0); MYELOCYTES% (MANUAL) 1 % (0-0); SEGS% (MANUAL) 33 % (42-75)
[2019-11-17 07:37] LABS: <PLATELET ESTIMATE> DECREASED; <PLT MORPHOLOGY> NORMAL PLT MORPH; ANISOCYTOSIS 1+; POLYCHROMASIA 1+
[2019-11-17 09:22] LABS: ALBUMIN 2.5 g/dL (3.4-5.0); BILIRUBIN, DIRECT 0.3 mg/dL (0.1-0.2)
[2019-11-17] MEDS: DIGOXIN 0.125 MG TABLET PO SCH (09:22)
[2019-11-17] MEDS: POTASSIUM CHLORIDE 20 MEQ TAB.ER.PRT PO SCH (09:22)
[2019-11-17] MEDS: FUROSEMIDE 40 MG TABLET PO SCH (09:22)
[2019-11-17] MEDS: TBO-FILGRASTIM 480 MCG/0.8 ML SQ SCH (09:23)
[2019-11-17 09:24] LABS: BILIRUBIN,INDIRECT 0.5 mg/dL (0.0-2.0); BILIRUBIN,TOTAL 0.8 mg/dL (0.2-1.0); TOTAL PROTEIN 7.3 g/dL (6.4-8.2)
[2019-11-17 10:00] VITALS: BP 136/70
[2019-11-17 14:44] VITALS: BP 124/67
[2019-11-17] MEDS: CIPROFLOXACIN 500 MG TABLET PO SCH (16:36)
[2019-11-17] MEDS: DAPTOMYCIN 400 MG in SODIUM CHLORIDE 0.9% 100 ML IVPB SCH (17:21)
[2019-11-17 19:29] VITALS: BP 132/80
[2019-11-18 00:08] VITALS: BP 108/64
[2019-11-18] MEDS: DILTIAZEM 60 MG TABLET PO SCH ×3 (00:54→16:07)
[2019-11-18 05:43] LABS: MEAN CORPUSCULAR HEMOGLOBIN 34.7 pg (27.0-34.8); MEAN CORPUSCULAR HGB CONC 32.8 g/dL (32.4-35.8); MEAN PLATELET VOLUME 8.4 fL (7.4-10.4); RED BLOOD COUNT 2.53 x10^6/uL (3.82-5.3); RED CELL DISTRIBUTION WIDTH 20.8 % (9.6-15.2)
[2019-11-18 06:26] LABS: PLATELET COUNT 41 x10^3/uL (130-400)
[2019-11-18 06:44] LABS: MD YES
[2019-11-18 06:46] LABS: <PLATELET ESTIMATE> DECREASED; <PLT MORPHOLOGY> NORMAL PLT MORPH; ANISOCYTOSIS 1+; BANDS%(MANUAL) 7 % (0-7); EOS#(MANUAL) 0.26 x10^3/uL (0.0-0.4); EOS% (MANUAL) 2 % (1-7); LYMPH#(MANUAL) 0.64 x10^3/uL (1-3.4); LYMPHS% (MANUAL) 5 % (22-44); MONOS#(MANUAL) 0.13 x10^3/uL (0.3-2.7); MONOS% (MANUAL) 1 % (2-9); POLYCHROMASIA 1+; SEG#(MANUAL) 10.88 x10^3/uL (1.8-6.8); SEGS% (MANUAL) 85 % (42-75)
[2019-11-18 06:47] LABS: PMNS WITH VACUOLES 1+; TOXIC GRAN 1+
[2019-11-18 07:47] VITALS: BP 133/76
[2019-11-18] MEDS ORDERED: SINCALIDE (KINEVAC) 5 MCG ONE (08:50)
[2019-11-18] MEDS: TBO-FILGRASTIM 480 MCG/0.8 ML SQ SCH (10:00)
[2019-11-18] MEDS: FUROSEMIDE 40 MG TABLET PO SCH (10:01)
[2019-11-18] MEDS: OXYcodone IR 5MG TABLET PO PRN (10:01)
[2019-11-18] MEDS: DIGOXIN 0.125 MG TABLET PO SCH (10:01)
[2019-11-18] MEDS: CIPROFLOXACIN 500 MG TABLET PO SCH (10:01)
[2019-11-18] MEDS: POTASSIUM CHLORIDE 20 MEQ TAB.ER.PRT PO SCH (10:02)
[2019-11-18] MEDS: ACETAMINOPHEN 325 MG TABLET PO PRN (12:32)
[2019-11-18 12:35] VITALS: BP 122/66
[2019-11-18] MEDS ORDERED: CIPR500T87 PO (16:21)
[2019-11-18] MEDS ORDERED: LINE600T12 PO (16:21)
== END 2019-11-18 17:40 | disposition home or self-care (01) | DRG 602 ==
LOC: ED 19:24 → EDIP 20:25 → 4NW 20:49
PROVIDERS: ADMIT Family Medicine; ATTEND Internal Medicine
DX: L03.114 Cellulitis of left upper limb (principal); G92 Toxic encephalopathy; D68.59 Other primary thrombophilia; D61.818 Other pancytopenia; M65.842 Other synovitis and tenosynovitis, left hand; I48.0 Paroxysmal atrial fibrillation; N18.30 Chronic kidney disease, stage 3 unspecified
CPT/HCPCS: 36415; 71046; 76705; 78227; 80048; 80053; 80076; 82550; 82784; 82787; 83605; 85025; 87040; 87070; 87077; 87186; 87205; 96374; 96375; 99285; G0378; J0878; J1170; J2405; J2543; J3370; A9537; A9575; C9898; J1447; J2805; J7030; J7050

== ENCOUNTER 2020-04-06 22:32 | Inpatient (IN) | payer MEDICARE ==
[~2020-04-06] VITALS: Ht 162.6 cm; Wt 68.9 kg
[~2020-04-06 22:32] MED LIST changes: +ASPI-963 PO; +CEFT2FRO2 IV; +CIPR500T87 PO; +DILT30TA33 PO; +DILT60TA36 PO; +FERR325T5 PO; +GABA400C PO; +GABA600T7 PO; +LEVO500T8 PO; +LEVO750T6 PO; +LINE600T12 PO; +OXYC5TAB98 PO; +PANT40TA6 PO; +POTA20TA89 PO; +SUCR1TAB33 PO; +TEMA15CA6 PO
--- NOTE | 2020-04-06 23:28 | NUR ---
Pt states having increased SOB over the last day. Pt to Room, on monitor, states feeling better. Pt with non labored breathing at this time. Will monitor. EKG complete. Labs and cxr complete. Family at bed side. Pt and family deny any needs at this time.
[2020-04-06 23:33] LABS: MEAN CORPUSCULAR HEMOGLOBIN 34.9 pg (27.0-34.8); MEAN CORPUSCULAR HGB CONC 33.5 g/dL (32.4-35.8); MEAN PLATELET VOLUME 9.3 fL (7.4-10.4); RED BLOOD COUNT 2.38 x10^6/uL (3.82-5.3); RED CELL DISTRIBUTION WIDTH 18.8 % (9.6-15.2)
[2020-04-06 23:39] LABS: ALANINE AMINOTRANSFERASE 11 U/L (12-78); ALBUMIN 2.8 g/dL (3.4-5.0); ANION GAP 9 mmol/L (5-15); CALCIUM 8.4 mg/dL (8.5-10.1); CHLORIDE 108 mmol/L (98-107); CREATININE 0.75 mg/dL (0.55-1.02)
[2020-04-06 23:44] LABS: ALKALINE PHOSPHATASE 116 U/L (45-117); BILIRUBIN,TOTAL 1.2 mg/dL (0.2-1.0); TOTAL PROTEIN 7.5 g/dL (6.4-8.2); TROPONIN I < 0.015 ng/mL (0.000-0.045)
[2020-04-07 00:07] LABS: MD YES; PLATELET COUNT 32 x10^3/uL (130-400)
[2020-04-07 00:10] LABS: BAND#(MANUAL) 0.31 x10^3/uL; BANDS%(MANUAL) 6 % (0-7); LYMPH#(MANUAL) 0.73 x10^3/uL (1-3.4); LYMPHS% (MANUAL) 14 % (22-44); MONOS% (MANUAL) 2 % (2-9); SEG#(MANUAL) 4.06 x10^3/uL (1.8-6.8); SEGS% (MANUAL) 78 % (42-75)
[2020-04-07 00:11] LABS: <PLATELET ESTIMATE> DECREASED; <PLT MORPHOLOGY> NORMAL PLT MORPH; ANISOCYTOSIS 1+; POLYCHROMASIA 1+
[2020-04-07] MEDS ORDERED: MORPHINE SULFATE 4 MG/ML, 1ML ONE (01:03)
--- NOTE | 2020-04-07 01:08 | NUR ---
PT REQ PAIN MEDICATION FOR BACK PAIN, ERP UPDATED NEW ORDERS AT THIS TIME.
--- NOTE | 2020-04-07 01:11 | NUR ---
PT MEDICATED PER MAR FOR PAIN AT THIS TIME TOLERATED WELL.
[2020-04-07] MEDS ORDERED: MORPHINE SULFATE 4 MG/ML, 1ML IVPush PRN (01:30)
--- NOTE | 2020-04-07 01:35 | NUR ---
DR OVALLE AT BEDSIDE TO ADMIT AT THIS TIME
[2020-04-07 02:06] VITALS: BP 114/52
[2020-04-07] MEDS ORDERED: LIDODERM 5% PATCH TD PRN (04:00)
[2020-04-07] MEDS ORDERED: LABETALOL 5MG/ML, 20ML IVPush PRN (04:00)
[2020-04-07] MEDS ORDERED: ONDANSETRON 2MG/ML, 2ML IVPush PRN (04:00)
[2020-04-07] MEDS ORDERED: MELATONIN 5 MG TABLET PO PRN (04:00)
[2020-04-07] MEDS ORDERED: ACETAMINOPHEN 325 MG TABLET PO PRN (04:00)
[2020-04-07] MEDS: SUCRALFATE 1 GM TABLET PO SCH ×4 (04:56→20:36)
[2020-04-07] MEDS: FUROSEMIDE 40 MG/4 ML IV SCH ×2 (04:56→15:58)
[2020-04-07] MEDS: LEVOFLOXACIN 500 MG TABLET PO SCH (04:56)
[2020-04-07 06:57] VITALS: BP 116/65
[2020-04-07] MEDS: GABAPENTIN 300 MG CAPSULE PO PRN ×2 (08:12→20:36)
[2020-04-07] MEDS: PANTOPRAZOLE 40MG TABLET PO SCH ×2 (08:13→20:36)
[2020-04-07] MEDS: SENNA/DOCUSATE TABLET PO SCH (09:00)
[2020-04-07] MEDS: POTASSIUM CHLORIDE 20 MEQ TAB.ER.PRT PO SCH (10:05)
[2020-04-07] MEDS: FERROUS SULFATE 325 MG TABLET PO SCH (10:05)
[2020-04-07] MEDS: DILTIAZEM 30 MG TABLET PO SCH ×3 (10:06→20:36)
[2020-04-07] MEDS: DIGOXIN 0.125 MG TABLET PO SCH (10:06)
[2020-04-07 12:23] VITALS: BP 115/66
[2020-04-07 20:10] VITALS: BP 134/69
[2020-04-08 00:25] VITALS: BP 144/80
[2020-04-08] MEDS: GABAPENTIN 300 MG CAPSULE PO PRN ×3 (03:23→20:37)
[2020-04-08] MEDS: LEVOFLOXACIN 500 MG TABLET PO SCH (03:23)
[2020-04-08 05:35] LABS: MEAN CORPUSCULAR HEMOGLOBIN 35.2 pg (27.0-34.8); MEAN CORPUSCULAR HGB CONC 34.2 g/dL (32.4-35.8); MEAN PLATELET VOLUME 8.7 fL (7.4-10.4); RED CELL DISTRIBUTION WIDTH 18.2 % (9.6-15.2)
[2020-04-08 05:40] LABS: ANION GAP 7 mmol/L (5-15); CALCIUM 8.1 mg/dL (8.5-10.1); CHLORIDE 104 mmol/L (98-107)
[2020-04-08 05:41] LABS: CREATININE 0.71 mg/dL (0.55-1.02)
[2020-04-08 05:55] LABS: MD YES; PLATELET COUNT 23 x10^3/uL (130-400)
[2020-04-08] MEDS: FUROSEMIDE 40 MG/4 ML IV SCH ×2 (06:30→16:43)
[2020-04-08] MEDS: SUCRALFATE 1 GM TABLET PO SCH ×4 (06:30→20:37)
[2020-04-08 06:46] LABS: BAND#(MANUAL) 0.03 x10^3/uL; BANDS%(MANUAL) 2 % (0-7); EOS#(MANUAL) 0.03 x10^3/uL (0.0-0.4); EOS% (MANUAL) 2 % (1-7); LYMPH#(MANUAL) 0.37 x10^3/uL (1-3.4); LYMPHS% (MANUAL) 22 % (22-44); MONOS#(MANUAL) 0.14 x10^3/uL (0.3-2.7); MONOS% (MANUAL) 8 % (2-9); REACTIVE LYMPHS # (MANUAL) 0.03 x10^3/uL (0-0); REACTIVE LYMPHS % (MANUAL) 2 % (0-0); SEG#(MANUAL) 1.09 x10^3/uL (1.8-6.8); SEGS% (MANUAL) 64 % (42-75)
[2020-04-08 06:55] LABS: <PLATELET ESTIMATE> DECREASED; <PLT MORPHOLOGY> NORMAL PLT MORPH; ANISOCYTOSIS 1+; PMNS WITH VACUOLES 1+; POLYCHROMASIA 1+
[2020-04-08 06:58] VITALS: BP 145/78
[2020-04-08] MEDS: DILTIAZEM 30 MG TABLET PO SCH ×3 (08:37→20:37)
[2020-04-08] MEDS: FERROUS SULFATE 325 MG TABLET PO SCH (08:37)
[2020-04-08] MEDS: SENNA/DOCUSATE TABLET PO SCH ×2 (08:37→08:39)
[2020-04-08] MEDS: POTASSIUM CHLORIDE 20 MEQ TAB.ER.PRT PO SCH (08:38)
[2020-04-08] MEDS: DIGOXIN 0.125 MG TABLET PO SCH (08:38)
[2020-04-08] MEDS: PANTOPRAZOLE 40MG TABLET PO SCH ×2 (08:38→20:37)
[2020-04-08 12:52] VITALS: BP 119/73
[2020-04-08 20:37] VITALS: BP 126/72
[2020-04-09 00:55] VITALS: BP 104/66
[2020-04-09] MEDS: LEVOFLOXACIN 500 MG TABLET PO SCH (04:10)
[2020-04-09] MEDS: SUCRALFATE 1 GM TABLET PO SCH (06:16)
[2020-04-09 06:56] VITALS: BP 121/71
[2020-04-09] MEDS: FUROSEMIDE 40 MG/4 ML IV SCH (07:39)
[2020-04-09] MEDS: DIGOXIN 0.125 MG TABLET PO SCH (07:39)
[2020-04-09] MEDS: DILTIAZEM 30 MG TABLET PO SCH (07:39)
[2020-04-09] MEDS: PANTOPRAZOLE 40MG TABLET PO SCH (07:40)
[2020-04-09] MEDS: FERROUS SULFATE 325 MG TABLET PO SCH (07:40)
[2020-04-09] MEDS: POTASSIUM CHLORIDE 20 MEQ TAB.ER.PRT PO SCH (07:40)
[2020-04-09] MEDS: SENNA/DOCUSATE TABLET PO SCH (07:40)
[2020-04-09] MEDS ORDERED: DILT30TA33 PO (08:12)
[2020-04-09] MEDS ORDERED: TBO-FILGRASTIM 300 MCG/0.5 ML SQ PRN (09:00)
== END 2020-04-09 10:30 | disposition home health service (06) | DRG 292 ==
LOC: ED 23:02 → EDIP 04-07 01:37 → 5SO 04-07 02:06 → DCLOUNGE 04-09 10:20
PROVIDERS: ADMIT Family Medicine; ATTEND Family Medicine
DX: I50.33 Acute on chronic diastolic (congestive) heart failure (principal); J96.11 Chronic respiratory failure with hypoxia; I38 Endocarditis, valve unspecified; D68.69 Other thrombophilia; B02.29 Other postherpetic nervous system involvement; D61.818 Other pancytopenia; D69.3 Immune thrombocytopenic purpura; I48.20 Chronic atrial fibrillation, unspecified; G89.29 Other chronic pain; I89.0 Lymphedema, not elsewhere classified; K40.90 Unilateral inguinal hernia, without obstruction or gangrene, not specified as recurrent; M45.9 Ankylosing spondylitis of unspecified sites in spine; M54.9 Dorsalgia, unspecified; I48.0 Paroxysmal atrial fibrillation; I35.0 Nonrheumatic aortic (valve) stenosis; I27.20 Pulmonary hypertension, unspecified; Z85.72 Personal history of non-Hodgkin lymphomas; Z86.79 Personal history of other diseases of the circulatory system; Z95.2 Presence of prosthetic heart valve
CPT/HCPCS: 36415; 71045; 80048; 80053; 80162; 83880; 84484; 85025; 93005; 96374; 99285; G0378; J1940; J2270